=== PATIENT | female | born 1945 | race Caucasian/White ===

== ENCOUNTER 2016-08-20 07:01 | Day surgery (SDC) | payer OTHER, MEDICAID ==
[~2016-08-20] VITALS: Ht 160 cm; Wt 58.9 kg
[~2016-08-20 07:01] MED LIST: AMOX1TAB12 PO; AMOX1TAB64 PO; ASPI-621 PO; ASPI325T4 PO; ATOR10TA PO; CARV12.52 PO; CELE200C PO; CIPR500T87 PO; CYCL5TAB PO; DOCU-30 PO; ENOX60SY4 SQ; FERR325T20 PO; GABA-826 PO; GABA300C PO; GEMF600T PO; GEMF600T3 PO; GLYB5TAB3 PO; HYDR-3240 PO; HYDR-3307 PO; INDO25CA PO; LEVO150T5 PO; LEVO750T26 PO; LORA-445 PO; LORA0.5T PO; LOVA40TA2 PO; METF500T4 PO; METR500T PO; OMEP-110 PO; OXYC10TA32 PO; OXYC1TAB9 PO; PRAS10TA4 PO; PRED20TA PO; SITA100T PO; TRAM50TA2 PO; WARF5TAB PO; WARF7.5T PO; neurontin PO; synthroid PO
[2016-08-20 07:33] VITALS: BP 147/61
[2016-08-20] MEDS ORDERED: LACTATED RINGERS 1,000 ML IV SCH ×2 (07:35→09:23)
[2016-08-20] MEDS ORDERED: OXYB5TAB7 PO (07:56)
[2016-08-20] MEDS ORDERED: TRAM50TA2 PO (07:56)
[2016-08-20] MEDS ORDERED: PLEASE ENTER HEIGHT AND WEIGHT MC SCH (08:00)
[2016-08-20] MEDS ORDERED: BUPIVACAINE/PF 0.5% ONE (08:35)
[2016-08-20] MEDS ORDERED: LIDOCAINE-MPF 2% ,5ML ONE (08:35)
[2016-08-20] MEDS ORDERED: BUPIVACAINE/PF 0.5% INFIL ONE (08:45)
[2016-08-20] MEDS ORDERED: PROPOFOL 10 MG/ML, 20ML ONE (08:48)
[2016-08-20] MEDS ORDERED: CEFAZOLIN 1,000 MG ONE (08:48)
[2016-08-20] MEDS ORDERED: ONDANSETRON 2MG/ML, 2ML ONE (08:48)
[2016-08-20 09:09] LABS: PATH.CAST-FLAG NOT PRESENT; SPERM-FLAG NOT PRESENT; SRC-FLAG NOT PRESENT; XTAL-FLAG NOT PRESENT; YLC-FLAG NOT PRESENT
[2016-08-20] MEDS ORDERED: METOPROLOL 1 MG/ML, 5ML IV PRN (09:30)
[2016-08-20] MEDS ORDERED: ALBUTEROL SULFATE 2.5 MG/3 ML NPPB PRN (09:30)
[2016-08-20] MEDS ORDERED: OXYcodone 5 MG/5 ML ORAL.SOL UDC PO PRN (09:30)
[2016-08-20] MEDS ORDERED: hydrALAzine 20 MG/ML, 1ML IV PRN (09:30)
[2016-08-20] MEDS ORDERED: ONDANSETRON 2MG/ML, 2ML IVPush PRN (09:30)
[2016-08-20] MEDS ORDERED: ACETAMINOPHEN 325 MG TABLET PO PRN (09:30)
[2016-08-20] MEDS ORDERED: EPHEDRINE 50 MG/ML, 1ML IVPush PRN (09:30)
[2016-08-20] MEDS ORDERED: LABETALOL 5MG/ML, 20ML IV PRN (09:30)
[2016-08-20] MEDS ORDERED: FENTANYL PF 100 MCG/2ML IV PRN (09:30)
[2016-08-20] MEDS ORDERED: HYDROmorphone 1 MG/ML, 1ML IV PRN (09:30)
== END 2016-08-20 11:40 ==
LOC: OUT 07:01
PROVIDERS: ATTEND Orthopaedic Surgery
DX: G56.02 Carpal tunnel syndrome, left upper limb (principal); J45.909 Unspecified asthma, uncomplicated; E11.9 Type 2 diabetes mellitus without complications; E78.00 Pure hypercholesterolemia, unspecified; F17.200 Nicotine dependence, unspecified, uncomplicated; Z87.39 Personal history of other diseases of the musculoskeletal system and connective tissue; Z86.39 Personal history of other endocrine, nutritional and metabolic disease
CPT/HCPCS: 64721; 81001; 82962; 87077; 87086; 87186; 93005; J0690; J2405; J2704; J3490; J7120

== ENCOUNTER 2016-10-27 22:10 | Emergency (ER) | payer OTHER, MEDICAID ==
[~2016-10-27] VITALS: Ht 160 cm; Wt 57.3 kg
[~2016-10-27 22:10] MED LIST changes: +ASPI325T17 PO; -ASPI325T4 PO; +CARV12.543 PO; +DOCU-131 PO; -DOCU-30 PO; +FERR325T18 PO; -FERR325T20 PO; +NITR100C56 PO; +OXYB5TAB7 PO; -OXYC10TA32 PO; +OXYC10TA47 PO
[2016-10-27 23:28] LABS: HEMATOCRIT 42.2 % (34.6-47.8); HEMOGLOBIN 14.3 g/dL (11.7-16.4); WHITE BLOOD COUNT 6.3 x10^3/uL (3.4-10)
[2016-10-27] MEDS ORDERED: SODIUM CHLORIDE FLUSH 10ML SYR IVF ONE (23:30)
[2016-10-27] MEDS ORDERED: SODIUM CHLORIDE 0.9% 1,000ML IVBOLUS ONE (23:30)
[2016-10-27 23:38] LABS: ASPARTATE AMINO TRANSFERASE 10 U/L (15-37); BLOOD UREA NITROGEN 7 mg/dL (7-18)
[2016-10-27 23:48] LABS: IS PT STATUS REG ER OR PRE ER? YES
[2016-10-28 02:47] LABS: IS PT STATUS REG ER OR PRE ER? YES
[2016-10-28 03:02] VITALS: BP 166/70
== END 2016-10-28 03:18 | disposition home or self-care (01) ==
LOC: ED 23:59
DX: R53.83 Other fatigue (principal); R53.1 Weakness; R19.7 Diarrhea, unspecified; J44.9 Chronic obstructive pulmonary disease, unspecified; E11.9 Type 2 diabetes mellitus without complications; I11.9 Hypertensive heart disease without heart failure; I25.10 Atherosclerotic heart disease of native coronary artery without angina pectoris; I25.2 Old myocardial infarction; M19.90 Unspecified osteoarthritis, unspecified site
CPT/HCPCS: 36415; 80053; 81003; 83690; 84484; 85025; 93005; 96360; 99285; J7030

== ENCOUNTER 2017-01-18 05:15 | Day surgery (SDC) | payer OTHER, MEDICAID ==
[~2017-01-18] VITALS: Ht 160 cm; Wt 60.0 kg
[~2017-01-18 05:15] MED LIST changes: +ASPI-496 PO; +FERR324T8 PO; +GABA300C10 PO
[2017-01-18] MEDS ORDERED: LACTATED RINGERS 1,000 ML IV SCH (06:11)
[2017-01-18 06:13] VITALS: BP 141/71
[2017-01-18] MEDS ORDERED: BUPIVACAINE/PF 0.5% ONE ×2 (06:36→06:57)
[2017-01-18] MEDS ORDERED: EPINEPHRINE 1 MG/ML, 1ML ONE (06:36)
[2017-01-18] MEDS ORDERED: MIDAZOLAM 1 MG/ML, 2ML ONE ×2 (06:54→07:02)
[2017-01-18] MEDS ORDERED: FENTANYL PF 100 MCG/2ML ONE ×2 (06:54→07:02)
[2017-01-18] MEDS ORDERED: LIDOCAINE-MPF 2% ,5ML ONE (06:57)
[2017-01-18] MEDS ORDERED: ONDANSETRON 2MG/ML, 2ML IVPush PRN (07:00)
[2017-01-18] MEDS ORDERED: FENTANYL PF 100 MCG/2ML IV PRN (07:00)
[2017-01-18] MEDS ORDERED: OXYcodone 5 MG/5 ML ORAL.SOL UDC PO PRN (07:00)
[2017-01-18] MEDS ORDERED: HYDROmorphone 1 MG/ML, 1ML IV PRN (07:00)
[2017-01-18] MEDS ORDERED: PROPOFOL 10 MG/ML, 20ML ONE (07:02)
[2017-01-18] MEDS ORDERED: CEFAZOLIN 1,000 MG ONE (07:02)
[2017-01-18] MEDS ORDERED: BUPIVACAINE/PF 0.5% INFIL ONE (07:17)
== END 2017-01-18 10:25 ==
LOC: OUT 05:15
PROVIDERS: ATTEND Orthopaedic Surgery
DX: G56.01 Carpal tunnel syndrome, right upper limb (principal); I10 Essential (primary) hypertension; F17.210 Nicotine dependence, cigarettes, uncomplicated; Z87.39 Personal history of other diseases of the musculoskeletal system and connective tissue; Z98.890 Other specified postprocedural states
CPT/HCPCS: 64721; 82962; J0690; J2250; J2704; J3010; J3490; J7120; J0171

== ENCOUNTER 2017-01-22 11:58 | Emergency (ER) | payer OTHER, MEDICAID ==
[~2017-01-22] VITALS: Ht 160 cm; Wt 60.0 kg
[2017-01-22 12:01] VITALS: BP 187/76
== END 2017-01-22 13:52 | disposition home or self-care (01) ==
LOC: ED 12:49
DX: M96.89 Other intraoperative and postprocedural complications and disorders of the musculoskeletal system (principal)
CPT/HCPCS: 99281

== ENCOUNTER 2017-07-21 14:43 | Inpatient (IN) | payer OTHER, MEDICAID ==
[~2017-07-21] VITALS: Ht 160 cm; Wt 58.0 kg
[2017-07-21] MEDS ORDERED: ASPIRIN 81 MG TABLET CHEW PO ONE (15:30)
[2017-07-21] MEDS ORDERED: NITROGLYCERIN SINGLE TAB 0.4 MG SL PRN (15:30)
[2017-07-21] MEDS ORDERED: SODIUM CHLORIDE FLUSH 10ML SYR IVF ONE (15:30)
[2017-07-21 15:50] LABS: BASOPHILS # (AUTO) 0.05 x10^3/uL (0-0.1); BASOPHILS % (AUTO) 1 % (0-1); EOSINOPHILS # (AUTO) 0.25 x10^3/uL (0-0.4); EOSINOPHILS % (AUTO) 4 % (1-7); LYMPHOCYTES % (AUTO) 29 % (22-44); MD NO; MEAN CORPUSCULAR HEMOGLOBIN 31.7 pg (27.0-34.8); MEAN CORPUSCULAR HGB CONC 34.2 g/dL (32.4-35.8); MEAN CORPUSCULAR VOLUME 92.5 fL (80-100); MEAN PLATELET VOLUME 10.7 fL (7.4-10.4); MONOCYTES # (AUTO) 0.66 x10^3/uL (0.2-0.8); MONOCYTES % (AUTO) 9 % (2-9); NEUTROPHILS # (AUTO) 4.23 x10^3/uL (1.8-6.8); NEUTROPHILS % (AUTO) 58 % (42-75); PLATELET COUNT 116 x10^3/uL (130-400); RED BLOOD COUNT 5.11 x10^6/uL (3.82-5.3); RED CELL DISTRIBUTION WIDTH 14.3 % (9.6-15.2)
[2017-07-21] MEDS ORDERED: NITROGLYCERIN SINGLE TAB 0.4 MG SL ONE (15:50)
[2017-07-21] MEDS ORDERED: ASPIRIN 81 MG TABLET CHEW ONE (15:50)
[2017-07-21 15:54] LABS: INTERNATIONAL NORMALIZED RATIO 1.1 (0.93-1.1); PROTHROMBIN TIME 11.3 Seconds (9.6-11.5)
[2017-07-21 15:59] LABS: ALBUMIN 3.9 g/dL (3.4-5.0); ANION GAP 8 mmol/L (5-15); CALCIUM 8.9 mg/dL (8.5-10.1); CHLORIDE 109 mmol/L (98-107); CREATININE 0.93 mg/dL (0.55-1.02)
[2017-07-21 16:04] LABS: TROPONIN I 0.142 ng/mL (0.000-0.045)
[2017-07-21] MEDS ORDERED: SODIUM CHLORIDE FLUSH 10ML SYR IVF PRN (17:00)
[2017-07-21] MEDS ORDERED: HEPARIN 5,000 UNITS/ML, 1ML IV ONE (17:00)
[2017-07-21] MEDS ORDERED: HEPARIN 25,000 UNITS/500ML PMX 500 ML IV PRN (17:00)
[2017-07-21] MEDS ORDERED: HEPARIN 25,000 UNITS/500ML PMX 500 ML ONE (17:07)
[2017-07-21] MEDS ORDERED: HEPARIN 5,000 UNITS/ML, 1ML ONE (17:07)
[2017-07-21] MEDS ORDERED: NITROGLYCERIN 0.4 MG BOTTLE (25 TABS) SL PRN (17:30)
[2017-07-21] MEDS ORDERED: ONDANSETRON 2MG/ML, 2ML IVPush PRN (17:30)
[2017-07-21] MEDS ORDERED: LABETALOL 5MG/ML, 20ML IVPush PRN (17:30)
[2017-07-21] MEDS ORDERED: NITROGLYCERIN 0.4 MG/SPRAY SL PRN (17:30)
[2017-07-21] MEDS ORDERED: ACETAMINOPHEN 325 MG TABLET PO PRN (17:30)
[2017-07-21] MEDS ORDERED: hydrALAzine 20 MG/ML, 1ML IVPush PRN (17:30)
[2017-07-21] MEDS ORDERED: DOCUSATE 100 MG CAPSULE PO PRN (17:30)
[2017-07-21] MEDS ORDERED: HYDROcodone/APAP 10/325 MG TABLET PO PRN (17:30)
[2017-07-21] MEDS ORDERED: BISACODYL 10 MG SUPP PR PRN (17:30)
[2017-07-21 18:13] LABS: TROPONIN I 0.134 ng/mL (0.000-0.045)
[2017-07-21 18:51] LABS: HEMOGLOBIN A1C 6.3 % (4.2-6.3)
[2017-07-21 19:05] VITALS: BP 120/63
[2017-07-21] MEDS: OMEPRAZOLE 20 MG CAPSULE.DR PO SCH (22:11)
[2017-07-21] MEDS: metFORMIN 500 MG TABLET PO SCH (22:11)
[2017-07-21] MEDS: ASPIRIN 81 MG TABLET EC PO SCH (22:11)
[2017-07-21] MEDS: FERROUS GLUCONATE 324 MG TABLET PO SCH (22:11)
[2017-07-21] MEDS: LOVASTATIN 40 MG TABLET PO SCH (22:11)
[2017-07-21] MEDS: CARVEDILOL 12.5 MG TABLET PO SCH (22:12)
[2017-07-21] MEDS: GABAPENTIN 300 MG CAPSULE PO SCH (22:12)
[2017-07-21] MEDS: NICOTINE 14MG/24 HR PATCH.TD24 TD SCH (22:12)
[2017-07-21] MEDS: LORazepam 0.5MG TABLET PO SCH (22:15)
[2017-07-21 23:44] LABS: TROPONIN I 0.129 ng/mL (0.000-0.045)
[2017-07-22] MEDS: HEPARIN 5,000 UNITS/ML, 1ML IV PRN ×2 (00:09→07:29)
[2017-07-22 03:02] VITALS: BP 146/83
[2017-07-22 03:04] VITALS: BP 146/83
[2017-07-22] MEDS: LORazepam 0.5MG TABLET PO SCH ×4 (06:00→21:11)
[2017-07-22 06:28] LABS: MEAN CORPUSCULAR HEMOGLOBIN 31.2 pg (27.0-34.8); MEAN CORPUSCULAR HGB CONC 33.4 g/dL (32.4-35.8); MEAN CORPUSCULAR VOLUME 93.4 fL (80-100); RED BLOOD COUNT 4.53 x10^6/uL (3.82-5.3); RED CELL DISTRIBUTION WIDTH 14.1 % (9.6-15.2)
[2017-07-22 06:37] LABS: ANION GAP 7 mmol/L (5-15); CALCIUM 8.8 mg/dL (8.5-10.1); CHLORIDE 111 mmol/L (98-107); CREATININE 0.81 mg/dL (0.55-1.02)
[2017-07-22 06:46] LABS: BASOPHILS # (AUTO) 0.04 x10^3/uL (0-0.1); BASOPHILS % (AUTO) 1 % (0-1); EOSINOPHILS # (AUTO) 0.26 x10^3/uL (0-0.4); EOSINOPHILS % (AUTO) 5 % (1-7); LYMPHOCYTES % (AUTO) 28 % (22-44); MD SCAN; MEAN PLATELET VOLUME 10.2 fL (7.4-10.4); MONOCYTES # (AUTO) 0.45 x10^3/uL (0.2-0.8); MONOCYTES % (AUTO) 8 % (2-9); NEUTROPHILS # (AUTO) 3.12 x10^3/uL (1.8-6.8); NEUTROPHILS % (AUTO) 58 % (42-75); PLATELET COUNT 84 x10^3/uL (130-400)
[2017-07-22 06:48] LABS: CHOL/HDL RATIO 2.8; CHOLESTEROL, TOTAL 86 mg/dL (140-239); HDL CHOL % 36 % (28-40); HDL CHOLESTEROL (DIRECT) 31 mg/dL (40-60); LDL CHOLESTEROL,CALCULATED 30 mg/dL (54-169); THYROID STIMULATING HORMONE 0.474 mIU/L (0.358-3.740); TRIGLYCERIDES 126 mg/dL (50-200); VLDL CHOLESTEROL 25 mg/dL (0-25)
[2017-07-22 07:35] VITALS: BP 146/65
[2017-07-22] MEDS: OXYBUTYNIN CHLORIDE 5 MG TABLET PO SCH (08:20)
[2017-07-22] MEDS: FERROUS GLUCONATE 324 MG TABLET PO SCH ×2 (08:20→21:10)
[2017-07-22] MEDS: ASPIRIN 81 MG TABLET EC PO SCH ×2 (08:21→21:11)
[2017-07-22] MEDS: GABAPENTIN 300 MG CAPSULE PO SCH ×2 (08:21→21:10)
[2017-07-22] MEDS: CARVEDILOL 12.5 MG TABLET PO SCH ×2 (08:21→21:11)
[2017-07-22] MEDS: metFORMIN 500 MG TABLET PO SCH ×2 (08:22→21:11)
[2017-07-22] MEDS: LEVOTHYROXINE 150 MCG TABLET PO SCH (08:23)
[2017-07-22] MEDS: OMEPRAZOLE 20 MG CAPSULE.DR PO SCH ×2 (09:00→21:10)
[2017-07-22] MEDS ORDERED: VERAPAMIL 2.5 MG/ML, 2ML ONE (12:56)
[2017-07-22] MEDS ORDERED: TICAGRELOR 90 MG TABLET ONE (12:56)
[2017-07-22] MEDS ORDERED: FENTANYL PF 100 MCG/2ML ONE (12:56)
[2017-07-22] MEDS ORDERED: MIDAZOLAM 1 MG/ML, 5ML ONE (12:56)
[2017-07-22] MEDS ORDERED: HEPARIN 1,000 UNITS/ML, 10ML ONE (12:57)
[2017-07-22] MEDS ORDERED: BIVALIRUDIN 250 MG ONE (12:57)
[2017-07-22] MEDS ORDERED: CLOPIDOGREL 300 MG TABLET ONE (14:20)
[2017-07-22] MEDS ORDERED: BIVALIRUDIN 250 MG in DEXTROSE 5% 50 ML IV SCH (14:20)
[2017-07-22 14:45] VITALS: BP 131/64
[2017-07-22] MEDS: NICOTINE 14MG/24 HR PATCH.TD24 TD SCH (18:33)
[2017-07-22 20:15] VITALS: BP 131/67
[2017-07-22] MEDS: LOVASTATIN 40 MG TABLET PO SCH (21:10)
[2017-07-23 00:16] VITALS: BP 132/73
[2017-07-23 05:10] LABS: ALBUMIN 3.2 g/dL (3.4-5.0); ANION GAP 7 mmol/L (5-15); CHLORIDE 106 mmol/L (98-107); CREATININE 0.64 mg/dL (0.55-1.02)
[2017-07-23] MEDS: LORazepam 0.5MG TABLET PO SCH ×3 (06:13→17:42)
[2017-07-23 07:35] VITALS: BP 123/77
[2017-07-23] MEDS ORDERED: CLOPIDOGREL 75 MG TABLET PO SCH (09:00)
[2017-07-23] MEDS: CARVEDILOL 12.5 MG TABLET PO SCH (10:26)
[2017-07-23] MEDS: OMEPRAZOLE 20 MG CAPSULE.DR PO SCH (10:26)
[2017-07-23] MEDS: OXYBUTYNIN CHLORIDE 5 MG TABLET PO SCH (10:26)
[2017-07-23] MEDS: FERROUS GLUCONATE 324 MG TABLET PO SCH (10:27)
[2017-07-23] MEDS: metFORMIN 500 MG TABLET PO SCH ×2 (10:27→17:40)
[2017-07-23] MEDS: ASPIRIN 81 MG TABLET EC PO SCH (10:27)
[2017-07-23] MEDS: GABAPENTIN 300 MG CAPSULE PO SCH (10:27)
[2017-07-23] MEDS: LEVOTHYROXINE 150 MCG TABLET PO SCH (10:28)
[2017-07-23] MEDS ORDERED: POTASSIUM CHLORIDE 20 MEQ TAB.ER.PRT PO ONE (11:00)
[2017-07-23 13:17] VITALS: BP 127/67
[2017-07-23] MEDS: NICOTINE 14MG/24 HR PATCH.TD24 TD SCH (14:09)
[2017-07-23] MEDS ORDERED: CLOP75TA52 PO (17:38)
== END 2017-07-23 18:45 | disposition home health service (06) | DRG 247 ==
LOC: ED 16:30 → EDIP 16:49 → 5SO 18:53
PROVIDERS: ADMIT Internal Medicine; ATTEND Internal Medicine
PROC: 027034Z Dilation of Coronary Artery, One Artery with Drug-eluting Intraluminal Device, Percutaneous Approach (ICD-10-PCS; principal; 2017-07-22)
PROC: 4A023N7 Measurement of Cardiac Sampling and Pressure, Left Heart, Percutaneous Approach (ICD-10-PCS; 2017-07-22)
PROC: B2111ZZ Fluoroscopy of Multiple Coronary Arteries using Low Osmolar Contrast (ICD-10-PCS; 2017-07-22)
PROC: B2151ZZ Fluoroscopy of Left Heart using Low Osmolar Contrast (ICD-10-PCS; 2017-07-22)
DX: I25.110 Atherosclerotic heart disease of native coronary artery with unstable angina pectoris (principal); E44.0 Moderate protein-calorie malnutrition; I35.0 Nonrheumatic aortic (valve) stenosis; E87.6 Hypokalemia; F17.210 Nicotine dependence, cigarettes, uncomplicated; D50.9 Iron deficiency anemia, unspecified; D69.6 Thrombocytopenia, unspecified; E03.9 Hypothyroidism, unspecified; E78.5 Hyperlipidemia, unspecified; F12.90 Cannabis use, unspecified, uncomplicated; G89.29 Other chronic pain; I11.9 Hypertensive heart disease without heart failure; E11.51 Type 2 diabetes mellitus with diabetic peripheral angiopathy without gangrene; M54.9 Dorsalgia, unspecified; F41.9 Anxiety disorder, unspecified; M10.9 Gout, unspecified; M19.90 Unspecified osteoarthritis, unspecified site; I45.10 Unspecified right bundle-branch block; J44.9 Chronic obstructive pulmonary disease, unspecified; Z79.82 Long term (current) use of aspirin; Z82.49 Family history of ischemic heart disease and other diseases of the circulatory system; Z83.3 Family history of diabetes mellitus; Z68.22 Body mass index [BMI] 22.0-22.9, adult; Z80.9 Family history of malignant neoplasm, unspecified; Z86.19 Personal history of other infectious and parasitic diseases; I25.2 Old myocardial infarction; Z87.440 Personal history of urinary (tract) infections
CPT/HCPCS: 36415; 71045; 80048; 80061; 82040; 83036; 83735; 83880; 84100; 84443; 84484; 85014; 85018; 85025; 85520; 85610; 85730; 93005; 93306; 93458; 99156; 99157; C1769; C1894; C9600; J0583; J1644; J2250; J3010; C1725; C1874; C1887; Q9967

== ENCOUNTER 2018-01-25 10:43 | Inpatient (IN) | payer OTHER, MEDICAID ==
[~2018-01-25] VITALS: Ht 160 cm; Wt 59.8 kg
[~2018-01-25 10:43] MED LIST changes: -ASPI-621 PO; +ASPI81TA45 PO; +CLOP75TA52 PO; -GEMF600T3 PO; +GEMF600T4 PO; -INDO25CA PO; +INDO25CA5 PO; +METF500T17 PO; -METF500T4 PO; +OXYC-432 PO; -OXYC1TAB9 PO
[2018-01-25 11:40] LABS: BASOPHILS # (AUTO) 0.06 x10^3/uL (0-0.1); BASOPHILS % (AUTO) 1 % (0-1); EOSINOPHILS # (AUTO) 0.27 x10^3/uL (0-0.4); EOSINOPHILS % (AUTO) 4 % (1-7); LYMPHOCYTES # (AUTO) 1.24 x10^3/uL (1-3.4); LYMPHOCYTES % (AUTO) 17 % (22-44); MD NO; MEAN CORPUSCULAR HEMOGLOBIN 27.6 pg (27.0-34.8); MEAN CORPUSCULAR HGB CONC 33.2 g/dL (32.4-35.8); MEAN CORPUSCULAR VOLUME 83.1 fL (80-100); MEAN PLATELET VOLUME 11.4 fL (7.4-10.4); MONOCYTES # (AUTO) 0.57 x10^3/uL (0.2-0.8); MONOCYTES % (AUTO) 8 % (2-9); NEUTROPHILS # (AUTO) 5.25 x10^3/uL (1.8-6.8); NEUTROPHILS % (AUTO) 71 % (42-75); PLATELET COUNT 133 x10^3/uL (130-400); RED BLOOD COUNT 4.47 x10^6/uL (3.82-5.3); RED CELL DISTRIBUTION WIDTH 14.9 % (9.6-15.2)
[2018-01-25 11:45] LABS: INTERNATIONAL NORMALIZED RATIO 1.1 (0.93-1.1); PROTHROMBIN TIME 11.6 Seconds (9.6-11.5)
[2018-01-25 11:48] LABS: ALANINE AMINOTRANSFERASE 20 U/L (12-78); ALBUMIN 3.8 g/dL (3.4-5.0); ANION GAP 8 mmol/L (5-15); CALCIUM 8.5 mg/dL (8.5-10.1); CHLORIDE 105 mmol/L (98-107); CREATININE 0.79 mg/dL (0.55-1.02)
[2018-01-25 11:52] LABS: ALKALINE PHOSPHATASE 91 U/L (45-117); BILIRUBIN,TOTAL 0.4 mg/dL (0.2-1.0); TOTAL PROTEIN 7.4 g/dL (6.4-8.2); TROPONIN I 0.116 ng/mL (0.000-0.045)
[2018-01-25] MEDS ORDERED: NITROGLYCERIN OINT 2%, 1GM TP ONE ×2 (12:30→12:33)
[2018-01-25 14:58] VITALS: BP 135/55
[2018-01-25] MEDS ORDERED: NITROGLYCERIN 0.4 MG BOTTLE (25 TABS) SL PRN ×2 (17:30)
[2018-01-25] MEDS ORDERED: BISACODYL 10 MG SUPP PR PRN (17:30)
[2018-01-25] MEDS ORDERED: ONDANSETRON 2MG/ML, 2ML IVPush PRN (17:30)
[2018-01-25] MEDS ORDERED: DOCUSATE 100 MG CAPSULE PO PRN (17:30)
[2018-01-25] MEDS ORDERED: NITROGLYCERIN 0.4 MG/SPRAY SL PRN (17:30)
[2018-01-25] MEDS ORDERED: ENALAPRILAT 1.25 MG/ML, 2ML IVPush PRN (17:30)
[2018-01-25] MEDS ORDERED: ACETAMINOPHEN 325 MG TABLET PO PRN (17:30)
[2018-01-25] MEDS ORDERED: LABETALOL 5MG/ML, 20ML IVPush PRN (17:30)
[2018-01-25] MEDS ORDERED: ZOLPIDEM 5MG TABLET PO PRN (17:30)
[2018-01-25] MEDS ORDERED: HEPARIN 5,000 UNITS/ML, 1ML IV ONE (18:00)
[2018-01-25] MEDS: HEPARIN 25,000 UNITS/500ML PMX 500 ML IV PRN (18:40)
[2018-01-25] MEDS: OMEPRAZOLE 20 MG CAPSULE.DR PO SCH (18:52)
[2018-01-25 18:57] LABS: TROPONIN I 0.108 ng/mL (0.000-0.045)
[2018-01-25 19:03] LABS: FREE T4 (FREE THYROXINE) 1.31 ng/dL (0.76-1.46); THYROID STIMULATING HORMONE 0.113 mIU/L (0.358-3.740)
[2018-01-25 19:21] LABS: HEMOGLOBIN A1C 5.8 % (4.2-6.3)
[2018-01-25 20:38] VITALS: BP 133/78
[2018-01-25] MEDS: LORazepam 0.5MG TABLET PO SCH (21:29)
[2018-01-25] MEDS: CARVEDILOL 12.5 MG TABLET PO SCH (21:30)
[2018-01-25] MEDS: OXYBUTYNIN CHLORIDE 5 MG TABLET PO SCH (21:30)
[2018-01-25] MEDS: LOVASTATIN 40 MG TABLET PO SCH (21:30)
[2018-01-25] MEDS: GABAPENTIN 300 MG CAPSULE PO SCH (21:30)
[2018-01-25] MEDS: FERROUS GLUCONATE 324 MG TABLET PO SCH (21:31)
[2018-01-25] MEDS: ASPIRIN 81 MG TABLET EC PO SCH (21:31)
[2018-01-25] MEDS: INSULIN LISPRO 100 UNITS/ML, PEN SQ-INSULIN SCH (21:35)
[2018-01-26 01:36] LABS: BASOPHILS # (AUTO) 0.08 x10^3/uL (0-0.1); BASOPHILS % (AUTO) 1 % (0-1); EOSINOPHILS # (AUTO) 0.43 x10^3/uL (0-0.4); EOSINOPHILS % (AUTO) 5 % (1-7); LYMPHOCYTES # (AUTO) 1.68 x10^3/uL (1-3.4); LYMPHOCYTES % (AUTO) 19 % (22-44); MD NO; MEAN CORPUSCULAR HEMOGLOBIN 27.7 pg (27.0-34.8); MEAN CORPUSCULAR HGB CONC 32.7 g/dL (32.4-35.8); MEAN CORPUSCULAR VOLUME 84.5 fL (80-100); MEAN PLATELET VOLUME 11.9 fL (7.4-10.4); MONOCYTES # (AUTO) 0.72 x10^3/uL (0.2-0.8); MONOCYTES % (AUTO) 8 % (2-9); NEUTROPHILS # (AUTO) 5.78 x10^3/uL (1.8-6.8); NEUTROPHILS % (AUTO) 67 % (42-75); PLATELET COUNT 154 x10^3/uL (130-400); RED CELL DISTRIBUTION WIDTH 15.2 % (9.6-15.2)
[2018-01-26 01:44] LABS: ANION GAP 5 mmol/L (5-15); CALCIUM 9.2 mg/dL (8.5-10.1); CHLORIDE 105 mmol/L (98-107); CHOLESTEROL, TOTAL 148 mg/dL (140-239); CREATININE 0.83 mg/dL (0.55-1.02)
[2018-01-26 01:47] LABS: CHOL/HDL RATIO 3.6; HDL CHOL % 28 % (28-40); HDL CHOLESTEROL (DIRECT) 41 mg/dL (40-60); LDL CHOLESTEROL,CALCULATED 74 mg/dL (54-169); LDL/HDL RATIO 1.8 (0.5-3.0); TRIGLYCERIDES 166 mg/dL (50-200); VLDL CHOLESTEROL 33 mg/dL (0-25)
[2018-01-26] MEDS: HEPARIN 5,000 UNITS/ML, 1ML IV PRN ×4 (02:39→23:02)
[2018-01-26 03:27] VITALS: BP 120/66
[2018-01-26] MEDS: LIDODERM 5% PATCH TD PRN (05:10)
[2018-01-26] MEDS: LORazepam 0.5MG TABLET PO SCH ×4 (05:10→20:37)
[2018-01-26 06:46] VITALS: BP 122/65
[2018-01-26] MEDS: INSULIN LISPRO 100 UNITS/ML, PEN SQ-INSULIN SCH ×4 (07:00→20:32)
[2018-01-26] MEDS: OXYBUTYNIN CHLORIDE 5 MG TABLET PO SCH ×2 (09:00→20:34)
[2018-01-26] MEDS: GABAPENTIN 300 MG CAPSULE PO SCH ×2 (09:07→20:33)
[2018-01-26] MEDS: ASPIRIN 81 MG TABLET EC PO SCH ×2 (09:07→20:36)
[2018-01-26] MEDS: OMEPRAZOLE 20 MG CAPSULE.DR PO SCH ×2 (09:07→16:19)
[2018-01-26] MEDS: FERROUS GLUCONATE 324 MG TABLET PO SCH ×2 (09:07→20:36)
[2018-01-26] MEDS: CARVEDILOL 12.5 MG TABLET PO SCH ×2 (09:08→20:34)
[2018-01-26] MEDS: LEVOTHYROXINE 150 MCG TABLET PO SCH (09:08)
[2018-01-26 12:26] VITALS: BP 92/58
[2018-01-26] MEDS: CLOPIDOGREL 75 MG TABLET PO SCH (12:30)
[2018-01-26 20:17] VITALS: BP 118/55
[2018-01-26] MEDS: LOVASTATIN 40 MG TABLET PO SCH (20:35)
[2018-01-26] MEDS: HEPARIN 25,000 UNITS/500ML PMX 500 ML IV PRN (23:08)
[2018-01-27 03:23] VITALS: BP 105/58
[2018-01-27] MEDS: LORazepam 0.5MG TABLET PO SCH ×4 (05:32→20:18)
[2018-01-27 05:43] LABS: BASOPHILS # (AUTO) 0.04 x10^3/uL (0-0.1); BASOPHILS % (AUTO) 1 % (0-1); EOSINOPHILS # (AUTO) 0.23 x10^3/uL (0-0.4); EOSINOPHILS % (AUTO) 5 % (1-7); LYMPHOCYTES # (AUTO) 0.47 x10^3/uL (1-3.4); LYMPHOCYTES % (AUTO) 9 % (22-44); MD NO; MEAN CORPUSCULAR HEMOGLOBIN 27.5 pg (27.0-34.8); MEAN CORPUSCULAR HGB CONC 33.2 g/dL (32.4-35.8); MEAN CORPUSCULAR VOLUME 82.7 fL (80-100); MEAN PLATELET VOLUME 11.5 fL (7.4-10.4); MONOCYTES # (AUTO) 0.49 x10^3/uL (0.2-0.8); MONOCYTES % (AUTO) 10 % (2-9); NEUTROPHILS # (AUTO) 3.87 x10^3/uL (1.8-6.8); NEUTROPHILS % (AUTO) 76 % (42-75); PLATELET COUNT 106 x10^3/uL (130-400); RED BLOOD COUNT 4.39 x10^6/uL (3.82-5.3); RED CELL DISTRIBUTION WIDTH 15.2 % (9.6-15.2)
[2018-01-27 05:46] LABS: CHLORIDE 107 mmol/L (98-107)
[2018-01-27 05:57] LABS: ANION GAP 7 mmol/L (5-15); CALCIUM 8.7 mg/dL (8.5-10.1); CREATININE 0.74 mg/dL (0.55-1.02)
[2018-01-27 06:37] VITALS: BP 111/63
[2018-01-27] MEDS: INSULIN LISPRO 100 UNITS/ML, PEN SQ-INSULIN SCH ×4 (07:00→20:18)
[2018-01-27] MEDS: OXYBUTYNIN CHLORIDE 5 MG TABLET PO SCH ×2 (08:33→20:16)
[2018-01-27] MEDS: OMEPRAZOLE 20 MG CAPSULE.DR PO SCH ×2 (08:33→17:00)
[2018-01-27] MEDS: FERROUS GLUCONATE 324 MG TABLET PO SCH ×2 (08:33→20:17)
[2018-01-27] MEDS: GABAPENTIN 300 MG CAPSULE PO SCH ×2 (08:33→20:16)
[2018-01-27] MEDS: CLOPIDOGREL 75 MG TABLET PO SCH (08:33)
[2018-01-27] MEDS: ASPIRIN 81 MG TABLET EC PO SCH ×2 (08:33→20:16)
[2018-01-27] MEDS: LEVOTHYROXINE 150 MCG TABLET PO SCH (08:34)
[2018-01-27] MEDS: CARVEDILOL 12.5 MG TABLET PO SCH ×2 (08:34→20:17)
[2018-01-27] MEDS: HEPARIN 5,000 UNITS/ML, 1ML IV PRN (12:32)
[2018-01-27 12:49] VITALS: BP 121/67
[2018-01-27] MEDS ORDERED: FENTANYL PF 100 MCG/2ML ONE (14:31)
[2018-01-27] MEDS ORDERED: MIDAZOLAM 1 MG/ML, 5ML ONE (14:31)
[2018-01-27] MEDS ORDERED: TICAGRELOR 90 MG TABLET ONE (14:31)
[2018-01-27] MEDS ORDERED: VERAPAMIL 2.5 MG/ML, 2ML ONE (14:31)
[2018-01-27] MEDS ORDERED: BIVALIRUDIN 250 MG ONE (14:32)
[2018-01-27] MEDS ORDERED: LIDOCAINE 2%, 20ML ONE (14:32)
[2018-01-27] MEDS ORDERED: BIVALIRUDIN 250 MG in DEXTROSE 5% 100 ML IV SCH (15:24)
[2018-01-27] MEDS: SODIUM CHLORIDE 0.9% 1,000 ML IV SCH ×2 (16:19→23:24)
[2018-01-27 19:11] VITALS: BP 130/80
[2018-01-27] MEDS: TICAGRELOR 90 MG TABLET PO SCH (20:16)
[2018-01-27] MEDS: LIDODERM 5% PATCH TD PRN (20:16)
[2018-01-27] MEDS: LOVASTATIN 40 MG TABLET PO SCH (20:17)
[2018-01-28 01:01] VITALS: BP 124/75
[2018-01-28] MEDS: LORazepam 0.5MG TABLET PO SCH ×2 (06:00→11:00)
[2018-01-28 06:13] LABS: ANION GAP 8 mmol/L (5-15); CALCIUM 8.7 mg/dL (8.5-10.1); CHLORIDE 108 mmol/L (98-107)
[2018-01-28 06:14] LABS: CREATININE 0.63 mg/dL (0.55-1.02)
[2018-01-28 06:20] LABS: BASOPHILS # (AUTO) 0.03 x10^3/uL (0-0.1); BASOPHILS % (AUTO) 0 % (0-1); EOSINOPHILS # (AUTO) 0.19 x10^3/uL (0-0.4); EOSINOPHILS % (AUTO) 3 % (1-7); LYMPHOCYTES # (AUTO) 0.32 x10^3/uL (1-3.4); LYMPHOCYTES % (AUTO) 5 % (22-44); MD NO; MEAN CORPUSCULAR HEMOGLOBIN 27.2 pg (27.0-34.8); MEAN CORPUSCULAR HGB CONC 32.8 g/dL (32.4-35.8); MEAN CORPUSCULAR VOLUME 82.9 fL (80-100); MONOCYTES # (AUTO) 0.52 x10^3/uL (0.2-0.8); MONOCYTES % (AUTO) 8 % (2-9); NEUTROPHILS # (AUTO) 5.97 x10^3/uL (1.8-6.8); NEUTROPHILS % (AUTO) 85 % (42-75); PLATELET COUNT 103 x10^3/uL (130-400); RED BLOOD COUNT 4.34 x10^6/uL (3.82-5.3); RED CELL DISTRIBUTION WIDTH 15.7 % (9.6-15.2)
[2018-01-28] MEDS: INSULIN LISPRO 100 UNITS/ML, PEN SQ-INSULIN SCH ×2 (07:00→11:00)
[2018-01-28 07:06] VITALS: BP 121/67
[2018-01-28] MEDS: CARVEDILOL 12.5 MG TABLET PO SCH (08:34)
[2018-01-28] MEDS: OMEPRAZOLE 20 MG CAPSULE.DR PO SCH (08:34)
[2018-01-28] MEDS: GABAPENTIN 300 MG CAPSULE PO SCH (08:34)
[2018-01-28] MEDS: ASPIRIN 81 MG TABLET EC PO SCH (08:34)
[2018-01-28] MEDS: OXYBUTYNIN CHLORIDE 5 MG TABLET PO SCH (08:35)
[2018-01-28] MEDS: LEVOTHYROXINE 150 MCG TABLET PO SCH (08:35)
[2018-01-28] MEDS: TICAGRELOR 90 MG TABLET PO SCH (08:35)
[2018-01-28] MEDS: FERROUS GLUCONATE 324 MG TABLET PO SCH (08:35)
[2018-01-28] MEDS ORDERED: ASPIRIN 81 MG TABLET EC PO SCH (09:00)
[2018-01-28] MEDS ORDERED: LISI5TAB7 PO (11:21)
[2018-01-28] MEDS ORDERED: TICA90TA PO (11:21)
== END 2018-01-28 13:48 | disposition home or self-care (01) | DRG 246 ==
LOC: ED 11:44 → EDIP 12:19 → 5SO 14:35 → DCLOUNGE 01-28 13:17
PROVIDERS: ADMIT Internal Medicine; ATTEND Internal Medicine
PROC: B2110ZZ Fluoroscopy of Multiple Coronary Arteries using High Osmolar Contrast (ICD-10-PCS; principal; 2018-01-27)
PROC: 027034Z Dilation of Coronary Artery, One Artery with Drug-eluting Intraluminal Device, Percutaneous Approach (ICD-10-PCS; 2018-01-27)
PROC: 4A023N7 Measurement of Cardiac Sampling and Pressure, Left Heart, Percutaneous Approach (ICD-10-PCS; 2018-01-27)
DX: T82.855A Stenosis of coronary artery stent, initial encounter (principal); I50.33 Acute on chronic diastolic (congestive) heart failure; E11.52 Type 2 diabetes mellitus with diabetic peripheral angiopathy with gangrene; I24.9 Acute ischemic heart disease, unspecified; D68.9 Coagulation defect, unspecified; I35.0 Nonrheumatic aortic (valve) stenosis; E03.9 Hypothyroidism, unspecified; E11.40 Type 2 diabetes mellitus with diabetic neuropathy, unspecified; E78.5 Hyperlipidemia, unspecified; F17.200 Nicotine dependence, unspecified, uncomplicated; I11.9 Hypertensive heart disease without heart failure; I25.2 Old myocardial infarction; I45.10 Unspecified right bundle-branch block; J44.9 Chronic obstructive pulmonary disease, unspecified; M10.9 Gout, unspecified; G89.29 Other chronic pain; F17.210 Nicotine dependence, cigarettes, uncomplicated; D50.9 Iron deficiency anemia, unspecified; I71.2 Thoracic aortic aneurysm, without rupture; I25.111 Atherosclerotic heart disease of native coronary artery with angina pectoris with documented spasm; Y83.1 Surgical operation with implant of artificial internal device as the cause of abnormal reaction of the patient, or of later complication, without mention of misadventure at the time of the procedure; M19.90 Unspecified osteoarthritis, unspecified site; Z82.49 Family history of ischemic heart disease and other diseases of the circulatory system; Z79.82 Long term (current) use of aspirin; Z83.3 Family history of diabetes mellitus; Z87.440 Personal history of urinary (tract) infections; Y92.89 Other specified places as the place of occurrence of the external cause; Z79.4 Long term (current) use of insulin; Z98.51 Tubal ligation status; Z90.49 Acquired absence of other specified parts of digestive tract; Z89.432 Acquired absence of left foot; Z89.431 Acquired absence of right foot
CPT/HCPCS: 36415; 71045; 80048; 80053; 80061; 82962; 83036; 83690; 84439; 84443; 84484; 85025; 85520; 85610; 85730; 93005; 93306; 93454; 99156; 99157; 99285; C1760; C1769; C1894; C9600; G0378; J0583; J1644; J2250; J3010; J3490; C1725; C1874; C1887; J7030; Q9967

== ENCOUNTER 2018-08-27 01:33 | Emergency (ER) | payer MEDICARE, MEDICAID ==
[~2018-08-27] VITALS: Ht 160 cm; Wt 58.0 kg
[~2018-08-27 01:33] MED LIST changes: -GEMF600T4 PO; +GEMF600T8 PO; -HYDR-3307 PO; +HYDR-36 PO; +INDO25CA22 PO; -INDO25CA5 PO; +LISI5TAB7 PO; +TICA90TA PO
[2018-08-27] MEDS ORDERED: ONDANSETRON 2MG/ML, 2ML ONE (02:44)
[2018-08-27] MEDS ORDERED: MORPHINE SULFATE 4 MG/ML, 1ML ONE (02:44)
[2018-08-27 02:52] LABS: ALBUMIN 3.8 g/dL (3.4-5.0); ANION GAP 7 mmol/L (5-15); CALCIUM 9.6 mg/dL (8.5-10.1); CHLORIDE 106 mmol/L (98-107); CREATININE 0.79 mg/dL (0.55-1.02)
[2018-08-27 02:56] LABS: TROPONIN I 0.118 ng/mL (0.000-0.045)
[2018-08-27] MEDS ORDERED: MORPHINE SULFATE 4 MG/ML, 1ML IVPush PRN (03:00)
[2018-08-27] MEDS ORDERED: ONDANSETRON 2MG/ML, 2ML IVPush ONE (03:00)
[2018-08-27 03:10] LABS: MD YES; MEAN CORPUSCULAR HEMOGLOBIN 22.7 pg (27.0-34.8); MEAN CORPUSCULAR HGB CONC 30.9 g/dL (32.4-35.8); MEAN CORPUSCULAR VOLUME 73.7 fL (80-100); MEAN PLATELET VOLUME 10.8 fL (7.4-10.4); PLATELET COUNT 157 x10^3/uL (130-400); RED BLOOD COUNT 4.72 x10^6/uL (3.82-5.3); RED CELL DISTRIBUTION WIDTH 19.7 % (9.6-15.2)
[2018-08-27 03:13] LABS: ANISOCYTOSIS 1+; BAND#(MANUAL) 0.15 x10^3/uL; BANDS%(MANUAL) 2 % (0-7); BASOS#(MANUAL) 0.07 x10^3/uL (0-0.1); BASOS% (MANUAL) 1 % (0-1); EOS#(MANUAL) 0.22 x10^3/uL (0.0-0.4); EOS% (MANUAL) 3 % (1-7); LYMPH#(MANUAL) 1.75 x10^3/uL (1-3.4); LYMPHS% (MANUAL) 24 % (22-44); MONOS#(MANUAL) 0.29 x10^3/uL (0.3-2.7); MONOS% (MANUAL) 4 % (2-9); SEG#(MANUAL) 4.82 x10^3/uL (1.8-6.8); SEGS% (MANUAL) 66 % (42-75)
[2018-08-27 03:14] LABS: POLYCHROMASIA 1+
[2018-08-27 03:15] LABS: <PLATELET ESTIMATE> ADEQUATE; LARGE PLATELETS 1+
[2018-08-27] MEDS ORDERED: OMNIPAQUE 350 MG/ML, 100ML BOTTLE ONE (03:18)
--- NOTE | 2018-08-27 03:29 | NUR ---
PT RESTING IN ROOM. VS STABLE. ELASTIC TAPE INSERTER ON. NSR NOTED. CALL LIGHT IN PLACE. WILL CONTINUE TO MONITOR.
--- NOTE | 2018-08-27 04:15 | NUR ---
PT RESTING IN ROOM. REGULAR RESP. NO ACUTE DISTRESS NOTED. CALL LIGHT IN PLACE. WILL CONTINUE TO MONITOR.
--- NOTE | 2018-08-27 04:44 | NUR ---
DR POLLACK HAS UPDATED PATIENT. HEPARIN HELD UNTIL LABS DRAWN PER DR POLLACK.
[2018-08-27] MEDS ORDERED: HEPARIN 5,000 UNITS/ML, 1ML ONE (04:50)
[2018-08-27] MEDS ORDERED: HEPARIN 25,000 UNITS/500ML PMX 500 ML ONE (04:50)
[2018-08-27 04:55] LABS: INTERNATIONAL NORMALIZED RATIO 1.05 (0.93-1.1)
[2018-08-27] MEDS ORDERED: HEPARIN 25,000 UNITS/500ML PMX 500 ML IV PRN (05:00)
[2018-08-27] MEDS ORDERED: hydrALAzine 20 MG/ML, 1ML IV ONE (05:00)
[2018-08-27] MEDS ORDERED: HEPARIN 5,000 UNITS/ML, 1ML IV PRN (05:00)
[2018-08-27] MEDS ORDERED: HEPARIN 5,000 UNITS/ML, 1ML IV ONE (05:00)
--- NOTE | 2018-08-27 05:03 | NUR ---
PT USED BATHROOM. AIR MATRESS PLACED ON PATIENT'S BED FOR COMFORT. PT RESTING IN ROOM. VS STABLE. PT REPORTS SHE HAS NO PAIN RIGHT NOW. GRIEVANCE COORDINATOR ON. NSR NOTED. WILL CONTINUE TO MONITOR.
--- NOTE | 2018-08-27 05:41 | NUR ---
PT RESTING IN ROOM. REGULAR RESP. VS STABLE. CODE NUMBER STAMPER ON. NSR NOTED. WILL CONTINUE TO MONITOR.
--- NOTE | 2018-08-27 06:11 | NUR ---
PT RESTING IN ROOM. OPAL MINER ON. NSR NOTED. CALL LIGHT IN PLACE. WILL CONTINUE TO MONITOR.
--- NOTE | 2018-08-27 07:00 | NUR ---
REPORT GIVEN TO MARLA ETIENNE
--- NOTE | 2018-08-27 07:20 | NUR ---
ASSUMED CARE. PT UOB WITHOUT ASSISTANCE TO BATHROOM WITH URINE SAMPLE OBTAINED. PT STATES ABDOMINAL PAIN IMPROVED BUT THAT IT IS "STILL THERE."
[2018-08-27 07:41] LABS: MICROSCOPIC AUTO
[2018-08-27 07:49] LABS: CULTURE INDICATED? YES
--- NOTE | 2018-08-27 09:30 | NUR ---
HOSPITALIST AT BEDSIDE. PT EATING FOOD PROVIDED BY VISITORS
[2018-08-27 09:42] VITALS: BP 149/87
[2018-08-27] MEDS ORDERED: CEFD300C37 PO ×2 (09:44)
[2018-08-27] MEDS ORDERED: OMEP-110 PO (09:44)
[2018-08-27] MEDS ORDERED: SUCR1ORA5 PO (09:44)
[2018-08-27] MEDS ORDERED: APIX5TAB PO ×2 (09:44)
--- NOTE | 2018-08-27 11:03 | NUR ---
PT GIVEN DISCHARGE INCLUDING MED CHANGES PER HOSPITALIST. ENCOURAGED TO DRINK PLENTY OF FLUID WITH MEDS AND FOOD AND TO TAKE SMALL BITES AND TO STAY AWAY FROM GREACY, SPICY FOOD AND COFFEE. TOLD PT TO RETURN TO ED FOR CP
[2018-10-05] MEDS ORDERED: POTA10TA5 PO (17:00)
[2018-10-05] MEDS ORDERED: FURO-93 PO (17:00)
[2018-10-05] MEDS ORDERED: ASPI81TA45 PO (17:00)
[2018-10-05] MEDS ORDERED: MAGN400T50 PO (17:00)
[2018-10-05] MEDS ORDERED: FERR-51 PO (17:00)
[2018-10-05] MEDS ORDERED: ATOR-2 PO (17:00)
[2018-10-05] MEDS ORDERED: CARV12.52 PO (17:00)
[2018-10-05] MEDS ORDERED: LISI5TAB7 PO (17:00)
== END 2018-08-27 11:08 | disposition home or self-care (01) ==
LOC: ED 04:42 → EDIP 04:45 → UNDOADMIN 04:45 → ED 11:08
DX: I71.4 Abdominal aortic aneurysm, without rupture (principal); R79.89 Other specified abnormal findings of blood chemistry; I11.0 Hypertensive heart disease with heart failure; E11.9 Type 2 diabetes mellitus without complications; E78.5 Hyperlipidemia, unspecified; I25.2 Old myocardial infarction; J44.9 Chronic obstructive pulmonary disease, unspecified; I25.10 Atherosclerotic heart disease of native coronary artery without angina pectoris; F17.200 Nicotine dependence, unspecified, uncomplicated; Z90.49 Acquired absence of other specified parts of digestive tract; Z95.5 Presence of coronary angioplasty implant and graft
CPT/HCPCS: 36415; 71045; 74177; 80048; 81001; 82040; 83605; 83880; 84484; 85025; 85520; 85610; 87077; 87086; 93005; 96365; 96366; 96375; 96376; 99284; J1644; J2270; J2405; Q9967

== ENCOUNTER 2019-02-13 19:28 | Inpatient (IN) | payer MEDICARE, MEDICAID ==
[~2019-02-13] VITALS: Ht 160 cm; Wt 60.9 kg
[~2019-02-13 19:28] MED LIST changes: +APIX5TAB PO; +ATOR-2 PO; +CEFD300C37 PO; +FERR-51 PO; +FURO-93 PO; +MAGN400T50 PO; +OXYB5TAB10 PO; -OXYB5TAB7 PO; +POTA10TA5 PO; +SUCR1ORA5 PO
--- NOTE | 2019-02-13 19:36 | NUR ---
BIB EMS FOR GLF, TRIPPED OVER DOG AT 5 PM, HIT HEAD ON CABINET, HORACIO LOC. CO RIGHT SIDE BODY PAIN, DIZZYNESS, AND SMITH.
[2019-02-13] MEDS ORDERED: NORT50CA52 PO (20:00)
[2019-02-13 20:03] LABS: BASOPHILS # (AUTO) 0.05 x10^3/uL (0-0.1); BASOPHILS % (AUTO) 0 % (0-1); EOSINOPHILS # (AUTO) 0.38 x10^3/uL (0-0.4); EOSINOPHILS % (AUTO) 3 % (1-7); LYMPHOCYTES # (AUTO) 1.65 x10^3/uL (1-3.4); LYMPHOCYTES % (AUTO) 12 % (22-44); MD NO; MEAN CORPUSCULAR HEMOGLOBIN 31.3 pg (27.0-34.8); MEAN CORPUSCULAR HGB CONC 32.7 g/dL (32.4-35.8); MEAN CORPUSCULAR VOLUME 95.8 fL (80-100); MEAN PLATELET VOLUME 9.8 fL (7.4-10.4); MONOCYTES # (AUTO) 0.66 x10^3/uL (0.2-0.8); MONOCYTES % (AUTO) 5 % (2-9); NEUTROPHILS # (AUTO) 11.27 x10^3/uL (1.8-6.8); NEUTROPHILS % (AUTO) 80 % (42-75); PLATELET COUNT 137 x10^3/uL (130-400); RED BLOOD COUNT 5.19 x10^6/uL (3.82-5.3)
[2019-02-13 20:13] LABS: ALBUMIN 4.1 g/dL (3.4-5.0); ANION GAP 8 mmol/L (5-15); CHLORIDE 100 mmol/L (98-107); CREATININE 1.67 mg/dL (0.55-1.02)
[2019-02-13 20:17] LABS: TROPONIN I 0.118 ng/mL (0.000-0.045)
--- NOTE | 2019-02-13 20:26 | NUR ---
CADIACY MONITOR APPLIED, WARM BLANKETS GIVEN. PT IN IMAGING
--- NOTE | 2019-02-13 20:38 | NUR ---
POC TO ADMIT, NO FURTHER NEEDS AT THIS TIME. VS STABLE.
--- NOTE | 2019-02-13 20:46 | NUR ---
REPORT TO NOLAN
--- NOTE | 2019-02-13 21:01 | NUR ---
SON WOULD LIKE PHONE NUMBER IN PATIENT RECORD FOR CONTACT IF NEEDED. PARESH ACHARYA [phone]
--- NOTE | 2019-02-13 21:10 | NUR ---
REPORT RECEIVED AND CARE ASSUMED. PT REQUESTING TO GO TO BR. PT IS VERY DROWSY. UNABLE TO KEEP EYES OPEN. DISCUSSED WITH PT THAT IS NOT SAFE TO WALK HER AT THIS TIME. AGREES TO BEDPAN. ASSISTED PT ON BEDPAN. NO URINE OUTPUT AT THIS TIME. PT REMAINS VERY DROWSY T/O RN ASSIST. PER PT, SON TOOK HER BELONGINGS WITH HIM--UNSURE WHAT BELONGINGS SHE HAD. PT IS NSR ON MONITOR. VSS. STATES "OW" WHEN TOUCHING PT BUT PT UNABLE TO PINPOINT PAIN. DENIES CP. CALL LIGHT IN REACH. PT TO BE ADMITTED TO FLOOR.
[2019-02-13 22:06] VITALS: BP 105/60
[2019-02-13] MEDS ORDERED: SODIUM CHLORIDE 0.9% 1,000 ML IV SCH (23:54)
[2019-02-14] MEDS ORDERED: ACETAMINOPHEN 325 MG TABLET PO PRN
[2019-02-14] MEDS ORDERED: LIDODERM 5% PATCH TD PRN
[2019-02-14] MEDS ORDERED: hydrALAzine 20 MG/ML, 1ML IVPush PRN
[2019-02-14] MEDS ORDERED: ONDANSETRON ODT 4 MG PO PRN
[2019-02-14] MEDS ORDERED: DOCUSATE 100 MG CAPSULE PO PRN
[2019-02-14] MEDS: HEPARIN 5,000 UNITS/ML, 1ML SQ SCH ×3 (00:22→16:00)
[2019-02-14 03:05] VITALS: BP 125/72
[2019-02-14 03:13] LABS: BASOPHILS # (AUTO) 0.36 x10^3/uL (0-0.1); BASOPHILS % (AUTO) 3 % (0-1); EOSINOPHILS # (AUTO) 0.11 x10^3/uL (0-0.4); EOSINOPHILS % (AUTO) 1 % (1-7); LYMPHOCYTES % (AUTO) 7 % (22-44); MD NO; MEAN CORPUSCULAR HEMOGLOBIN 30.6 pg (27.0-34.8); MEAN CORPUSCULAR HGB CONC 32.7 g/dL (32.4-35.8); MEAN CORPUSCULAR VOLUME 93.7 fL (80-100); MEAN PLATELET VOLUME 10.3 fL (7.4-10.4); MONOCYTES # (AUTO) 0.56 x10^3/uL (0.2-0.8); MONOCYTES % (AUTO) 4 % (2-9); NEUTROPHILS # (AUTO) 12.36 x10^3/uL (1.8-6.8); NEUTROPHILS % (AUTO) 86 % (42-75); PLATELET COUNT 114 x10^3/uL (130-400); RED BLOOD COUNT 5.04 x10^6/uL (3.82-5.3); RED CELL DISTRIBUTION WIDTH 19.8 % (9.6-15.2)
[2019-02-14 03:21] LABS: ANION GAP 8 mmol/L (5-15); CALCIUM 9.3 mg/dL (8.5-10.1); CHLORIDE 104 mmol/L (98-107); CREATININE 1.45 mg/dL (0.55-1.02)
[2019-02-14] MEDS: ASPIRIN 81 MG TABLET EC PO SCH (05:11)
[2019-02-14] MEDS: LORazepam 0.5MG TABLET PO SCH ×4 (05:11→20:09)
[2019-02-14] MEDS: INSULIN LISPRO 100 UNITS/ML, PEN SQ-INSULIN SCH ×4 (07:00→20:26)
[2019-02-14] MEDS ORDERED: FUROSEMIDE 20 MG TABLET PO SCH (09:00)
[2019-02-14] MEDS ORDERED: POTASSIUM CHLORIDE 10 MEQ TABLET.ER PO SCH (09:00)
[2019-02-14 09:20] VITALS: BP 135/77
[2019-02-14] MEDS: LISINOPRIL 5 MG TABLET PO SCH (10:21)
[2019-02-14] MEDS: OXYBUTYNIN CHLORIDE 5 MG TABLET PO SCH ×2 (10:21→20:25)
[2019-02-14] MEDS: GABAPENTIN 300 MG CAPSULE PO SCH ×2 (10:21→20:25)
[2019-02-14] MEDS: OMEPRAZOLE 20 MG CAPSULE.DR PO SCH ×2 (10:21→20:25)
[2019-02-14] MEDS: CARVEDILOL 12.5 MG TABLET PO SCH ×2 (10:22→20:25)
[2019-02-14] MEDS: LEVOTHYROXINE 150 MCG TABLET PO SCH (10:22)
[2019-02-14] MEDS ORDERED: HEPARIN 5,000 UNITS/ML, 1ML IV ONE (12:30)
[2019-02-14] MEDS ORDERED: HEPARIN 5,000 UNITS/ML, 1ML IV PRN (12:30)
[2019-02-14] MEDS: HEPARIN 25,000 UNITS/500ML PMX 500 ML IV PRN (13:09)
[2019-02-14 13:26] LABS: MICROSCOPIC AUTO
[2019-02-14 13:27] LABS: CULTURE INDICATED? YES
[2019-02-14] MEDS: CEFTRIAXONE PMX 1GM/50ML 50 ML IV SCH (14:37)
[2019-02-14 14:52] VITALS: BP 92/58
[2019-02-14 15:38] VITALS: BP 95/59
[2019-02-14] MEDS: FERROUS SULFATE 325 MG TABLET PO SCH (18:07)
[2019-02-14 20:04] VITALS: BP 108/60
[2019-02-14] MEDS: ATORVASTATIN 80 MG TABLET PO SCH (20:25)
[2019-02-14] MEDS: NORTRIPTYLINE 50 MG CAPSULE PO SCH (20:26)
[2019-02-15 01:36] VITALS: BP 105/58
[2019-02-15] MEDS: ASPIRIN 81 MG TABLET EC PO SCH (05:03)
[2019-02-15 06:04] LABS: ALBUMIN 3.3 g/dL (3.4-5.0); ANION GAP 6 mmol/L (5-15); CHLORIDE 103 mmol/L (98-107)
[2019-02-15 06:36] LABS: ALANINE AMINOTRANSFERASE 37 U/L (12-78); ALKALINE PHOSPHATASE 70 U/L (45-117); BILIRUBIN,TOTAL 0.6 mg/dL (0.2-1.0); CHOLESTEROL, TOTAL 109 mg/dL (140-239); CREATININE 1.15 mg/dL (0.55-1.02); HDL CHOLESTEROL (DIRECT) 43 mg/dL (40-60); TRIGLYCERIDES 119 mg/dL (50-200); VLDL CHOLESTEROL 24 mg/dL (0-25)
[2019-02-15 06:37] LABS: CHOL/HDL RATIO 2.5; HDL CHOL % 39 % (28-40); LDL CHOLESTEROL,CALCULATED 42 mg/dL (54-169)
[2019-02-15 06:50] LABS: FREE T4 (FREE THYROXINE) 0.37 ng/dL (0.76-1.46)
[2019-02-15 06:57] VITALS: BP 92/52
[2019-02-15 07:00] LABS: BASOPHILS # (AUTO) 0.06 x10^3/uL (0-0.1); BASOPHILS % (AUTO) 1 % (0-1); EOSINOPHILS # (AUTO) 0.29 x10^3/uL (0-0.4); EOSINOPHILS % (AUTO) 3 % (1-7); LYMPHOCYTES # (AUTO) 1.51 x10^3/uL (1-3.4); LYMPHOCYTES % (AUTO) 15 % (22-44); MD SCAN; MEAN CORPUSCULAR HEMOGLOBIN 30.7 pg (27.0-34.8); MEAN CORPUSCULAR HGB CONC 32.7 g/dL (32.4-35.8); MEAN CORPUSCULAR VOLUME 94.1 fL (80-100); MEAN PLATELET VOLUME 10.8 fL (7.4-10.4); MONOCYTES # (AUTO) 0.43 x10^3/uL (0.2-0.8); MONOCYTES % (AUTO) 4 % (2-9); NEUTROPHILS # (AUTO) 7.81 x10^3/uL (1.8-6.8); NEUTROPHILS % (AUTO) 77 % (42-75); PLATELET COUNT 96 x10^3/uL (130-400); RED BLOOD COUNT 4.54 x10^6/uL (3.82-5.3)
[2019-02-15] MEDS: INSULIN LISPRO 100 UNITS/ML, PEN SQ-INSULIN SCH ×4 (07:00→21:11)
[2019-02-15] MEDS ORDERED: LEVOTHYROXINE 100 MCG INJ IVPush ONE (07:30)
[2019-02-15] MEDS: LEVOTHYROXINE 150 MCG TABLET PO SCH (07:43)
[2019-02-15] MEDS: LORazepam 0.5MG TABLET PO SCH ×4 (08:00→20:46)
[2019-02-15 09:17] VITALS: BP 107/62
[2019-02-15] MEDS: CARVEDILOL 12.5 MG TABLET PO SCH ×2 (09:22→20:45)
[2019-02-15] MEDS: OMEPRAZOLE 20 MG CAPSULE.DR PO SCH ×2 (09:22→20:45)
[2019-02-15] MEDS: OXYBUTYNIN CHLORIDE 5 MG TABLET PO SCH ×2 (09:22→20:51)
[2019-02-15] MEDS: LISINOPRIL 5 MG TABLET PO SCH (09:23)
[2019-02-15] MEDS: GABAPENTIN 300 MG CAPSULE PO SCH ×2 (09:23→20:46)
[2019-02-15 13:44] VITALS: BP 106/65
[2019-02-15] MEDS: CEFTRIAXONE PMX 1GM/50ML 50 ML IV SCH (13:51)
[2019-02-15] MEDS: FERROUS SULFATE 325 MG TABLET PO SCH (17:51)
[2019-02-15] MEDS: HEPARIN 25,000 UNITS/500ML PMX 500 ML IV PRN (18:12)
[2019-02-15 19:56] VITALS: BP 100/61
[2019-02-15] MEDS: ATORVASTATIN 80 MG TABLET PO SCH (20:45)
[2019-02-15] MEDS: NORTRIPTYLINE 50 MG CAPSULE PO SCH (20:51)
[2019-02-16 03:09] VITALS: BP 96/51
[2019-02-16 05:44] LABS: MEAN CORPUSCULAR HEMOGLOBIN 30.7 pg (27.0-34.8); MEAN CORPUSCULAR HGB CONC 32.7 g/dL (32.4-35.8); MEAN CORPUSCULAR VOLUME 93.8 fL (80-100); RED BLOOD COUNT 4.27 x10^6/uL (3.82-5.3); RED CELL DISTRIBUTION WIDTH 19.7 % (9.6-15.2)
[2019-02-16] MEDS: ASPIRIN 81 MG TABLET EC PO SCH (05:45)
[2019-02-16] MEDS: LORazepam 0.5MG TABLET PO SCH ×4 (05:47→21:20)
[2019-02-16 05:53] LABS: ANION GAP 8 mmol/L (5-15); CALCIUM 8.6 mg/dL (8.5-10.1); CHLORIDE 103 mmol/L (98-107)
[2019-02-16 06:04] LABS: CREATININE 1.05 mg/dL (0.55-1.02)
[2019-02-16 06:28] LABS: BASOPHILS # (AUTO) 0.05 x10^3/uL (0-0.1); BASOPHILS % (AUTO) 1 % (0-1); EOSINOPHILS # (AUTO) 0.34 x10^3/uL (0-0.4); EOSINOPHILS % (AUTO) 4 % (1-7); LYMPHOCYTES # (AUTO) 1.02 x10^3/uL (1-3.4); LYMPHOCYTES % (AUTO) 13 % (22-44); MD MORPH REVIEW ONLY; MEAN PLATELET VOLUME 11.4 fL (7.4-10.4); MONOCYTES # (AUTO) 0.51 x10^3/uL (0.2-0.8); MONOCYTES % (AUTO) 6 % (2-9); NEUTROPHILS # (AUTO) 5.93 x10^3/uL (1.8-6.8); NEUTROPHILS % (AUTO) 76 % (42-75); PLATELET COUNT 100 x10^3/uL (130-400)
[2019-02-16 06:29] LABS: <PLATELET ESTIMATE> DECREASED; LARGE PLATELETS 1+
[2019-02-16 06:30] LABS: <RBC MORPHOLOGY> NORMAL
[2019-02-16 07:13] VITALS: BP 143/63
[2019-02-16] MEDS: INSULIN LISPRO 100 UNITS/ML, PEN SQ-INSULIN SCH ×4 (08:03→22:00)
[2019-02-16] MEDS: CARVEDILOL 12.5 MG TABLET PO SCH ×2 (08:56→21:19)
[2019-02-16] MEDS: OXYBUTYNIN CHLORIDE 5 MG TABLET PO SCH ×2 (08:56→21:20)
[2019-02-16] MEDS: OMEPRAZOLE 20 MG CAPSULE.DR PO SCH ×2 (08:56→21:15)
[2019-02-16] MEDS: LISINOPRIL 5 MG TABLET PO SCH (08:56)
[2019-02-16] MEDS: LEVOTHYROXINE 150 MCG TABLET PO SCH (08:56)
[2019-02-16] MEDS: GABAPENTIN 300 MG CAPSULE PO SCH ×2 (08:56→21:15)
[2019-02-16] MEDS ORDERED: SODIUM CHLORIDE 0.9% 1,000 ML IV SCH (11:00)
[2019-02-16 13:25] VITALS: BP 134/74
[2019-02-16] MEDS: CEFTRIAXONE PMX 1GM/50ML 50 ML IV SCH (14:32)
[2019-02-16] MEDS ORDERED: FENTANYL PF 100 MCG/2ML ONE (15:38)
[2019-02-16] MEDS ORDERED: MIDAZOLAM 1 MG/ML, 5ML ONE (15:38)
[2019-02-16] MEDS ORDERED: BIVALIRUDIN 250 MG ONE (15:39)
[2019-02-16] MEDS ORDERED: TICAGRELOR 90 MG TABLET ONE (15:39)
[2019-02-16] MEDS ORDERED: LIDOCAINE 2%, 20ML ONE (15:39)
[2019-02-16] MEDS: SODIUM CHLORIDE 0.9% 1,000 ML IV SCH (17:03)
[2019-02-16] MEDS: FERROUS SULFATE 325 MG TABLET PO SCH (17:05)
[2019-02-16] MEDS ORDERED: LEVOTHYROXINE 100 MCG INJ IVPush ONE (18:00)
[2019-02-16 20:26] VITALS: BP 129/70
[2019-02-16] MEDS: NORTRIPTYLINE 50 MG CAPSULE PO SCH (21:20)
[2019-02-16] MEDS: ATORVASTATIN 80 MG TABLET PO SCH (21:20)
[2019-02-17] MEDS: SODIUM CHLORIDE 0.9% 1,000 ML IV SCH ×3 (00:32→17:12)
[2019-02-17 03:49] VITALS: BP 100/57
[2019-02-17 04:47] LABS: ANION GAP 5 mmol/L (5-15); CALCIUM 9.2 mg/dL (8.5-10.1); CHLORIDE 104 mmol/L (98-107)
[2019-02-17 04:58] LABS: CREATININE 0.94 mg/dL (0.55-1.02)
[2019-02-17 05:14] LABS: FREE T4 (FREE THYROXINE) 0.72 ng/dL (0.76-1.46)
[2019-02-17] MEDS: LORazepam 0.5MG TABLET PO SCH ×5 (06:00→21:00)
[2019-02-17] MEDS: ASPIRIN 81 MG TABLET EC PO SCH (06:15)
[2019-02-17 06:50] VITALS: BP 113/64
[2019-02-17] MEDS: INSULIN LISPRO 100 UNITS/ML, PEN SQ-INSULIN SCH ×4 (07:42→21:00)
[2019-02-17] MEDS: CARVEDILOL 12.5 MG TABLET PO SCH ×2 (10:03→22:36)
[2019-02-17] MEDS: OMEPRAZOLE 20 MG CAPSULE.DR PO SCH ×2 (10:03→22:34)
[2019-02-17] MEDS: LISINOPRIL 5 MG TABLET PO SCH (10:04)
[2019-02-17] MEDS: OXYBUTYNIN CHLORIDE 5 MG TABLET PO SCH ×2 (10:04→22:36)
[2019-02-17] MEDS: LEVOTHYROXINE 150 MCG TABLET PO SCH (10:04)
[2019-02-17] MEDS: GABAPENTIN 300 MG CAPSULE PO SCH ×2 (10:05→22:36)
[2019-02-17] MEDS ORDERED: LEVOTHYROXINE 100 MCG INJ IVPush ONE (12:00)
[2019-02-17 13:13] VITALS: BP 154/85
[2019-02-17] MEDS: ERTAPENEM 1 GM in SODIUM CHLORIDE 0.9% 50 ML IV SCH (14:56)
[2019-02-17] MEDS: FERROUS SULFATE 325 MG TABLET PO SCH (17:47)
[2019-02-17 20:25] VITALS: BP 119/67
[2019-02-17] MEDS: ATORVASTATIN 80 MG TABLET PO SCH (22:36)
[2019-02-17] MEDS: NORTRIPTYLINE 50 MG CAPSULE PO SCH (22:43)
[2019-02-18] MEDS: SODIUM CHLORIDE 0.9% 1,000 ML IV SCH ×2 (00:32→08:32)
[2019-02-18 01:21] VITALS: BP 125/72
[2019-02-18] MEDS: LORazepam 0.5MG TABLET PO SCH ×4 (06:00→20:47)
[2019-02-18] MEDS: ASPIRIN 81 MG TABLET EC PO SCH (06:17)
[2019-02-18] MEDS: INSULIN LISPRO 100 UNITS/ML, PEN SQ-INSULIN SCH ×4 (07:00→20:47)
[2019-02-18 07:33] LABS: FREE T4 (FREE THYROXINE) 0.91 ng/dL (0.76-1.46)
[2019-02-18 07:46] VITALS: BP 105/66
[2019-02-18] MEDS ORDERED: LEVOTHYROXINE 100 MCG INJ IVPush ONE (08:30)
[2019-02-18] MEDS: CARVEDILOL 12.5 MG TABLET PO SCH ×3 (09:00→20:45)
[2019-02-18] MEDS: OXYBUTYNIN CHLORIDE 5 MG TABLET PO SCH ×2 (09:48→20:47)
[2019-02-18] MEDS: LEVOTHYROXINE 150 MCG TABLET PO SCH (09:48)
[2019-02-18] MEDS: LISINOPRIL 5 MG TABLET PO SCH (09:49)
[2019-02-18] MEDS: OMEPRAZOLE 20 MG CAPSULE.DR PO SCH ×2 (09:49→20:45)
[2019-02-18] MEDS: GABAPENTIN 300 MG CAPSULE PO SCH ×2 (09:49→20:44)
[2019-02-18 13:41] VITALS: BP 129/73
[2019-02-18] MEDS: ERTAPENEM 1 GM in SODIUM CHLORIDE 0.9% 50 ML IV SCH (14:33)
[2019-02-18] MEDS: FERROUS SULFATE 325 MG TABLET PO SCH (18:31)
[2019-02-18 20:18] VITALS: BP 125/67
[2019-02-18] MEDS: NORTRIPTYLINE 50 MG CAPSULE PO SCH (20:45)
[2019-02-18] MEDS: ATORVASTATIN 80 MG TABLET PO SCH (20:46)
[2019-02-19 01:11] VITALS: BP 133/71
[2019-02-19 05:35] LABS: ANION GAP 4 mmol/L (5-15); CALCIUM 8.9 mg/dL (8.5-10.1); CHLORIDE 103 mmol/L (98-107); CREATININE 0.94 mg/dL (0.55-1.02)
[2019-02-19 05:40] LABS: MEAN CORPUSCULAR HEMOGLOBIN 31.2 pg (27.0-34.8); MEAN CORPUSCULAR HGB CONC 33.1 g/dL (32.4-35.8); MEAN CORPUSCULAR VOLUME 94.3 fL (80-100); RED BLOOD COUNT 4.25 x10^6/uL (3.82-5.3)
[2019-02-19 05:45] LABS: FREE T4 (FREE THYROXINE) 1.13 ng/dL (0.76-1.46)
[2019-02-19] MEDS: LORazepam 0.5MG TABLET PO SCH ×2 (05:55→11:08)
[2019-02-19] MEDS: ASPIRIN 81 MG TABLET EC PO SCH (05:56)
[2019-02-19 06:02] LABS: MD YES; MEAN PLATELET VOLUME 10.7 fL (7.4-10.4); PLATELET COUNT 95 x10^3/uL (130-400)
[2019-02-19 06:07] LABS: EOS#(MANUAL) 0.54 x10^3/uL (0.0-0.4); EOS% (MANUAL) 8 % (1-7); LYMPH#(MANUAL) 1.02 x10^3/uL (1-3.4); LYMPHS% (MANUAL) 15 % (22-44); MONOS#(MANUAL) 0.41 x10^3/uL (0.3-2.7); MONOS% (MANUAL) 6 % (2-9); SEG#(MANUAL) 4.83 x10^3/uL (1.8-6.8); SEGS% (MANUAL) 71 % (42-75)
[2019-02-19 06:08] LABS: <PLATELET ESTIMATE> DECREASED; ANISOCYTOSIS 1+; LARGE PLATELETS 1+; MICROCYTOSIS 1+
[2019-02-19 06:38] VITALS: BP 155/83
[2019-02-19] MEDS: INSULIN LISPRO 100 UNITS/ML, PEN SQ-INSULIN SCH ×2 (07:00→12:11)
[2019-02-19] MEDS: GABAPENTIN 300 MG CAPSULE PO SCH (08:37)
[2019-02-19] MEDS: OMEPRAZOLE 20 MG CAPSULE.DR PO SCH (08:37)
[2019-02-19] MEDS: OXYBUTYNIN CHLORIDE 5 MG TABLET PO SCH (08:37)
[2019-02-19] MEDS: LISINOPRIL 5 MG TABLET PO SCH (08:38)
[2019-02-19] MEDS: CARVEDILOL 12.5 MG TABLET PO SCH (08:39)
[2019-02-19] MEDS: LEVOTHYROXINE 150 MCG TABLET PO SCH (08:40)
[2019-02-19] MEDS ORDERED: CLOPIDOGREL 75 MG TABLET PO SCH (09:00)
[2019-02-19 12:42] VITALS: BP 94/58
[2019-02-19] MEDS ORDERED: CLOP75TA PO (13:06)
[2019-02-19] MEDS ORDERED: ERTA1VIA4 IV (13:06)
[2019-02-19] MEDS: ERTAPENEM 1 GM in SODIUM CHLORIDE 0.9% 50 ML IV SCH (13:47)
== END 2019-02-19 16:58 | disposition left against medical advice (07) | DRG 280 ==
LOC: ED 20:37 → EDIP 20:40 → 5SO 21:53
PROVIDERS: ADMIT Family Medicine; ATTEND Internal Medicine
PROC: 4A023N7 Measurement of Cardiac Sampling and Pressure, Left Heart, Percutaneous Approach (ICD-10-PCS; principal; 2019-02-16)
PROC: B211YZZ Fluoroscopy of Multiple Coronary Arteries using Other Contrast (ICD-10-PCS; 2019-02-16)
PROC: 02HV33Z Insertion of Infusion Device into Superior Vena Cava, Percutaneous Approach (ICD-10-PCS; 2019-02-18)
PROC: B5181ZA Fluoroscopy of Superior Vena Cava using Low Osmolar Contrast, Guidance (ICD-10-PCS; 2019-02-18)
PROC: B548ZZA Ultrasonography of Superior Vena Cava, Guidance (ICD-10-PCS; 2019-02-18)
DX: T82.855A Stenosis of coronary artery stent, initial encounter (principal); I21.4 Non-ST elevation (NSTEMI) myocardial infarction; N17.0 Acute kidney failure with tubular necrosis; I42.9 Cardiomyopathy, unspecified; I50.42 Chronic combined systolic (congestive) and diastolic (congestive) heart failure; N39.0 Urinary tract infection, site not specified; E87.1 Hypo-osmolality and hyponatremia; Z16.12 Extended spectrum beta lactamase (ESBL) resistance; S00.93XA Contusion of unspecified part of head, initial encounter; J44.9 Chronic obstructive pulmonary disease, unspecified; E11.51 Type 2 diabetes mellitus with diabetic peripheral angiopathy without gangrene; I35.2 Nonrheumatic aortic (valve) stenosis with insufficiency; I35.1 Nonrheumatic aortic (valve) insufficiency; D69.6 Thrombocytopenia, unspecified; E03.9 Hypothyroidism, unspecified; E78.5 Hyperlipidemia, unspecified; F17.210 Nicotine dependence, cigarettes, uncomplicated; G89.11 Acute pain due to trauma; G89.29 Other chronic pain; K21.9 Gastro-esophageal reflux disease without esophagitis; M10.9 Gout, unspecified; W18.31XA Fall on same level due to stepping on an object, initial encounter; I11.0 Hypertensive heart disease with heart failure; I25.10 Atherosclerotic heart disease of native coronary artery without angina pectoris; Z66 Do not resuscitate; Z82.49 Family history of ischemic heart disease and other diseases of the circulatory system; Z83.3 Family history of diabetes mellitus; I25.2 Old myocardial infarction; Z87.440 Personal history of urinary (tract) infections; Z91.14 Patient's other noncompliance with medication regimen; Z95.5 Presence of coronary angioplasty implant and graft; Y93.89 Activity, other specified; Y92.098 Other place in other non-institutional residence as the place of occurrence of the external cause; Y99.8 Other external cause status; Z89.432 Acquired absence of left foot; Z89.431 Acquired absence of right foot; Z80.9 Family history of malignant neoplasm, unspecified; Z79.84 Long term (current) use of oral hypoglycemic drugs
CPT/HCPCS: 36415; 36573; 70450; 71045; 72125; 80048; 80053; 80061; 81001; 82040; 82962; 83036; 83880; 84439; 84443; 84484; 85014; 85018; 85025; 85520; 87040; 87077; 87086; 87184; 87186; 93005; 93308; 93454; 99156; 99285; C1760; C1769; G0378; J0583; J0696; J1335; J1644; J2250; J3010; C1751; J0360; J1815; J7030; Q9967

== ENCOUNTER → 2019-03-18 | Outpatient (CLI) | payer MEDICARE, MEDICAID ==
[~2019-03-18] MED LIST changes: +CLOP75TA PO; +ERTA1VIA4 IV; +NORT50CA52 PO
== END | disposition home or self-care (01) ==
LOC: CVU 10:15
PROVIDERS: ATTEND Internal Medicine Cardiovascular Disease
DX: I65.23 Occlusion and stenosis of bilateral carotid arteries (principal); I35.8 Other nonrheumatic aortic valve disorders; I25.10 Atherosclerotic heart disease of native coronary artery without angina pectoris; I71.9 Aortic aneurysm of unspecified site, without rupture; I70.0 Atherosclerosis of aorta; I71.2 Thoracic aortic aneurysm, without rupture; M51.34 Other intervertebral disc degeneration, thoracic region
CPT/HCPCS: 71250; 74176; 93880; 94060; 94726; 94729

== ENCOUNTER 2019-04-19 21:20 | Observation (INO) | payer MEDICARE, MEDICAID ==
[~2019-04-19] VITALS: Ht 162.6 cm; Wt 61.9 kg
[~2019-04-19 21:20] MED LIST changes: +METF500T PO
[2019-04-19 22:15] LABS: ALBUMIN 3.6 g/dL (3.4-5.0); ANION GAP 8 mmol/L (5-15); CALCIUM 8.8 mg/dL (8.5-10.1); CHLORIDE 102 mmol/L (98-107)
[2019-04-19 22:18] LABS: ALANINE AMINOTRANSFERASE 23 U/L (12-78); ALKALINE PHOSPHATASE 72 U/L (45-117); BILIRUBIN,TOTAL 0.5 mg/dL (0.2-1.0); CREATININE 1.32 mg/dL (0.55-1.02); TOTAL PROTEIN 7.3 g/dL (6.4-8.2)
--- NOTE | 2019-04-19 22:25 | NUR ---
PT STATED "SHE SMOKED SOME NEW WEED CALLED [employer]EL AND THAT IS WHY SHE IS SO LETHARGIC, IT WAS TOO STRONG AND I NEED TO GIVE IT AWAY"
[2019-04-19 22:30] LABS: BASOPHILS # (AUTO) 0.02 x10^3/uL (0-0.1); BASOPHILS % (AUTO) 0 % (0-1); EOSINOPHILS # (AUTO) 0.43 x10^3/uL (0-0.4); EOSINOPHILS % (AUTO) 5 % (1-7); LYMPHOCYTES # (AUTO) 0.85 x10^3/uL (1-3.4); LYMPHOCYTES % (AUTO) 11 % (22-44); MD SCAN; MEAN CORPUSCULAR HEMOGLOBIN 34.4 pg (27.0-34.8); MEAN CORPUSCULAR HGB CONC 33.5 g/dL (32.4-35.8); MEAN CORPUSCULAR VOLUME 102.5 fL (80-100); MEAN PLATELET VOLUME 10.4 fL (7.4-10.4); MONOCYTES # (AUTO) 0.16 x10^3/uL (0.2-0.8); MONOCYTES % (AUTO) 2 % (2-9); NEUTROPHILS # (AUTO) 6.55 x10^3/uL (1.8-6.8); NEUTROPHILS % (AUTO) 82 % (42-75); PLATELET COUNT 68 x10^3/uL (130-400); RED BLOOD COUNT 4.04 x10^6/uL (3.82-5.3); RED CELL DISTRIBUTION WIDTH 16.2 % (9.6-15.2)
--- NOTE | 2019-04-19 22:37 | NUR ---
TAYA MCCAIN AUGUSTA [phone].
[2019-04-19 22:47] LABS: TROPONIN I 0.776 ng/mL (0.000-0.045)
--- NOTE | 2019-04-19 22:49 | NUR ---
REPORT GIVEN TO NICOLA PHILLIPS RN
--- NOTE | 2019-04-19 22:58 | NUR ---
REPORT FROM ALYSSA GUTIÉRREZ.
--- NOTE | 2019-04-19 23:30 | NUR ---
ASSISTED PT TO RESTROOM.
--- NOTE | 2019-04-19 23:48 | NUR ---
REPORT TO LAUREN GUTIÉRREZ.
[2019-04-20 00:03] LABS: FREE T4 (FREE THYROXINE) 0.38 ng/dL (0.76-1.46)
[2019-04-20 00:05] VITALS: BP_SYST 108; BP_SYST 86; BP_DIAS 54; BP_DIAS 70
[2019-04-20 00:15] VITALS: BP 108/70
[2019-04-20] MEDS ORDERED: NICOTINE 7 MG/24 HR PATCH.TD24 TD SCH (01:00)
[2019-04-20] MEDS ORDERED: LIDODERM 5% PATCH TD PRN (01:00)
[2019-04-20] MEDS ORDERED: ACETAMINOPHEN 325 MG TABLET PO PRN (01:00)
[2019-04-20] MEDS ORDERED: hydrALAzine 20 MG/ML, 1ML IVPush PRN (01:00)
[2019-04-20 01:20] VITALS: BP 108/70
[2019-04-20 04:30] LABS: TROPONIN I 0.661 ng/mL (0.000-0.045)
[2019-04-20] MEDS ORDERED: LEVOTHYROXINE 150 MCG TABLET PO SCH (06:00)
[2019-04-20 07:31] VITALS: BP 119/70
[2019-04-20] MEDS ORDERED: CLOPIDOGREL 75 MG TABLET PO SCH (09:00)
[2019-04-20] MEDS ORDERED: SENNA/DOCUSATE TABLET PO SCH (09:00)
[2019-04-20 10:51] LABS: TROPONIN I 0.489 ng/mL (0.000-0.045)
[2019-04-20] MEDS ORDERED: THYR30TA PO (11:10)
[2019-04-21] MEDS ORDERED: THYROID 30 MG TABLET PO SCH (06:00)
== END 2019-04-20 13:20 | disposition home or self-care (01) ==
LOC: ED 22:08 → EDIP 23:10 → INTOOBSV 23:10 → 5SO 23:59
PROVIDERS: ADMIT Family Medicine; ATTEND Family Medicine
DX: R53.83 Other fatigue (principal); N17.9 Acute kidney failure, unspecified; N18.2 Chronic kidney disease, stage 2 (mild); J44.9 Chronic obstructive pulmonary disease, unspecified; K59.00 Constipation, unspecified; I42.9 Cardiomyopathy, unspecified; I45.2 Bifascicular block; K62.5 Hemorrhage of anus and rectum; I13.0 Hypertensive heart and chronic kidney disease with heart failure and stage 1 through stage 4 chronic kidney disease, or unspecified chronic kidney disease; F17.213 Nicotine dependence, cigarettes, with withdrawal; F12.929 Cannabis use, unspecified with intoxication, unspecified; E03.4 Atrophy of thyroid (acquired); E11.22 Type 2 diabetes mellitus with diabetic chronic kidney disease; E11.51 Type 2 diabetes mellitus with diabetic peripheral angiopathy without gangrene; E11.65 Type 2 diabetes mellitus with hyperglycemia; E78.5 Hyperlipidemia, unspecified; G89.29 Other chronic pain; M19.90 Unspecified osteoarthritis, unspecified site; M54.9 Dorsalgia, unspecified; I25.10 Atherosclerotic heart disease of native coronary artery without angina pectoris; I25.2 Old myocardial infarction; I50.9 Heart failure, unspecified; Z79.82 Long term (current) use of aspirin; Z79.4 Long term (current) use of insulin; Z79.899 Other long term (current) drug therapy; Z79.02 Long term (current) use of antithrombotics/antiplatelets; Z95.5 Presence of coronary angioplasty implant and graft; Z95.2 Presence of prosthetic heart valve
CPT/HCPCS: 36415; 71045; 80053; 83735; 84439; 84443; 84481; 84484; 85025; 93005; 97161; 97165; 99285; G0378

== ENCOUNTER 2019-05-26 15:35 | Observation (INO) | payer MEDICARE, MEDICAID ==
[~2019-05-26] VITALS: Ht 160 cm; Wt 59.2 kg
[~2019-05-26 15:35] MED LIST changes: +THYR30TA PO
--- NOTE | 2019-05-26 15:40 | NUR ---
Call esvin Chacon at [phone] for pickler helper.
[2019-05-26 15:54] LABS: BASOPHILS # (AUTO) 0.07 x10^3/uL (0-0.1); BASOPHILS % (AUTO) 1 % (0-1); EOSINOPHILS # (AUTO) 0.28 x10^3/uL (0-0.4); EOSINOPHILS % (AUTO) 4 % (1-7); LYMPHOCYTES # (AUTO) 1.27 x10^3/uL (1-3.4); LYMPHOCYTES % (AUTO) 17 % (22-44); MD NO; MEAN CORPUSCULAR HEMOGLOBIN 34.3 pg (27.0-34.8); MEAN CORPUSCULAR HGB CONC 33.2 g/dL (32.4-35.8); MEAN CORPUSCULAR VOLUME 103.3 fL (80-100); MEAN PLATELET VOLUME 9.3 fL (7.4-10.4); MONOCYTES # (AUTO) 0.32 x10^3/uL (0.2-0.8); MONOCYTES % (AUTO) 4 % (2-9); NEUTROPHILS # (AUTO) 5.54 x10^3/uL (1.8-6.8); NEUTROPHILS % (AUTO) 74 % (42-75); PLATELET COUNT 126 x10^3/uL (130-400); RED BLOOD COUNT 4.26 x10^6/uL (3.82-5.3); RED CELL DISTRIBUTION WIDTH 14.6 % (9.6-15.2)
[2019-05-26] MEDS ORDERED: FAMOTIDINE 20 MG/2 ML IV ONE (16:00)
[2019-05-26] MEDS ORDERED: SODIUM CHLORIDE 0.9% 1,000ML IVBOLUS ONE (16:00)
[2019-05-26] MEDS ORDERED: SODIUM CHLORIDE FLUSH 10ML SYR IVF ONE (16:00)
--- NOTE | 2019-05-26 16:00 | NUR ---
BIB [facility] FOR LOW BP, WEAKNESS, BLACK DIARRHEA. CALLED BY PAULETTE GUTIÉRREZ, PT BEING SEEN POST AORTIC VALVE REPLACEMENT, BP LOW TODAY 82/45 AND BLOOD SUGARS "OFF", BS 180 PER [facility]. HX GIB, DM AND HYPOTHYROID. IV ESTABLISHED AND 1L NS STARTED. REPORT TO RONAK GUTIÉRREZ TO TAKE PRIMARY CARE OF PT AT THIS TIME.
[2019-05-26 16:06] LABS: ANION GAP 6 mmol/L (5-15); CALCIUM 9.7 mg/dL (8.5-10.1); CHLORIDE 105 mmol/L (98-107); CREATININE 1.65 mg/dL (0.55-1.02)
[2019-05-26 16:07] LABS: ALANINE AMINOTRANSFERASE 29 U/L (12-78); ALBUMIN 3.9 g/dL (3.4-5.0)
[2019-05-26 16:09] LABS: ALKALINE PHOSPHATASE 66 U/L (45-117); BILIRUBIN,TOTAL 0.7 mg/dL (0.2-1.0); TOTAL PROTEIN 7.6 g/dL (6.4-8.2)
[2019-05-26] MEDS ORDERED: FAMOTIDINE 20 MG/2 ML ONE (16:32)
[2019-05-26 16:35] LABS: INTERNATIONAL NORMALIZED RATIO 1.16 (0.93-1.1); PROTHROMBIN TIME 12.3 Seconds (9.6-11.5)
[2019-05-26] MEDS ORDERED: PANTOPRAZOLE 80 MG in SODIUM CHLORIDE 0.9% 50 ML IV ONE (17:00)
[2019-05-26] MEDS ORDERED: ACETAMINOPHEN 325 MG TABLET PO PRN (17:30)
[2019-05-26] MEDS ORDERED: ONDANSETRON 2MG/ML, 2ML IVPush PRN (17:30)
[2019-05-26] MEDS ORDERED: FERROUS SULFATE 325 MG TABLET PO SCH (17:30)
[2019-05-26] MEDS ORDERED: ONDANSETRON ODT 4 MG PO PRN (17:30)
--- NOTE | 2019-05-26 17:42 | NUR ---
VSS AND UPDATED IN EMR. REPORT OF PT TO MARLA ORELLANA. AWAITING PROTONIX IV DOSE FROM PHARMACY AT THIS TIME. CALLED AND SPOKE TO JONA IN PHARMACY ABOUT DELAY AND HE WILL TUBE NOW.
[2019-05-26] MEDS: SODIUM CHLORIDE 0.9% 1,000 ML IV SCH (18:13)
[2019-05-26] MEDS: PANTOPRAZOLE 80 MG in SODIUM CHLORIDE 0.9% 100 ML IV SCH (18:18)
--- NOTE | 2019-05-26 18:20 | NUR ---
PT MEDICATED PER APR. FLOOR RN NOTIFIED OF DELAY AND CHANGES TO CARE. ESTEE ROMERO AT FOR TRANPORT OF PT TO FLOOR.
[2019-05-26 19:31] VITALS: BP 103/64
[2019-05-26] MEDS: SUCRALFATE 1 GM/10 ML UDC PO SCH (22:40)
[2019-05-26] MEDS: ATORVASTATIN 80 MG TABLET PO SCH (22:41)
[2019-05-26] MEDS: GABAPENTIN 300 MG CAPSULE PO SCH (22:41)
[2019-05-26] MEDS: NICOTINE 7 MG/24 HR PATCH.TD24 TD SCH (22:41)
[2019-05-26] MEDS: LACTOBACILLUS CHEW TABLET PO SCH (22:41)
[2019-05-26] MEDS: CARVEDILOL 12.5 MG TABLET PO SCH (22:41)
[2019-05-26] MEDS: OMEPRAZOLE 20 MG CAPSULE.DR PO SCH (22:41)
[2019-05-26 23:13] VITALS: BP 103/64
[2019-05-27 00:36] VITALS: BP 103/65
[2019-05-27] MEDS: CEFTRIAXONE PMX 1GM/50ML 50 ML IV SCH ×2 (00:41→18:03)
[2019-05-27 03:50] LABS: ANION GAP 6 mmol/L (5-15); CALCIUM 8.5 mg/dL (8.5-10.1); CHLORIDE 111 mmol/L (98-107)
[2019-05-27 03:51] LABS: CREATININE 1.24 mg/dL (0.55-1.02)
[2019-05-27 03:59] LABS: MEAN CORPUSCULAR HEMOGLOBIN 34.1 pg (27.0-34.8); MEAN CORPUSCULAR HGB CONC 33.2 g/dL (32.4-35.8); MEAN CORPUSCULAR VOLUME 102.7 fL (80-100); MEAN PLATELET VOLUME 9.6 fL (7.4-10.4); PLATELET COUNT 97 x10^3/uL (130-400); RED BLOOD COUNT 3.67 x10^6/uL (3.82-5.3); RED CELL DISTRIBUTION WIDTH 14.8 % (9.6-15.2)
[2019-05-27 04:19] LABS: BASOPHILS # (AUTO) 0.03 x10^3/uL (0-0.1); BASOPHILS % (AUTO) 1 % (0-1); EOSINOPHILS # (AUTO) 0.26 x10^3/uL (0-0.4); EOSINOPHILS % (AUTO) 4 % (1-7); LYMPHOCYTES # (AUTO) 0.91 x10^3/uL (1-3.4); LYMPHOCYTES % (AUTO) 15 % (22-44); MD SCAN; MONOCYTES # (AUTO) 0.31 x10^3/uL (0.2-0.8); MONOCYTES % (AUTO) 5 % (2-9); NEUTROPHILS # (AUTO) 4.48 x10^3/uL (1.8-6.8); NEUTROPHILS % (AUTO) 75 % (42-75)
[2019-05-27] MEDS: PANTOPRAZOLE 80 MG in SODIUM CHLORIDE 0.9% 100 ML IV SCH ×2 (04:46→15:23)
[2019-05-27] MEDS ORDERED: ASPIRIN 81 MG TABLET EC PO SCH (06:00)
[2019-05-27] MEDS ORDERED: THYROID 30 MG TABLET PO SCH (06:00)
[2019-05-27 07:00] VITALS: BP 102/64
[2019-05-27] MEDS ORDERED: CLOPIDOGREL 75 MG TABLET PO SCH (09:00)
[2019-05-27] MEDS: CARVEDILOL 12.5 MG TABLET PO SCH ×2 (09:00→21:00)
[2019-05-27] MEDS: POTASSIUM CHLORIDE 10 MEQ TABLET.ER PO SCH (09:00)
[2019-05-27] MEDS: LACTOBACILLUS CHEW TABLET PO SCH ×3 (09:00→21:29)
[2019-05-27] MEDS ORDERED: LEVOTHYROXINE 150 MCG TABLET PO SCH (09:00)
[2019-05-27] MEDS: GABAPENTIN 300 MG CAPSULE PO SCH ×2 (09:01→21:29)
[2019-05-27] MEDS: LISINOPRIL 5 MG TABLET PO SCH (09:01)
[2019-05-27] MEDS: SUCRALFATE 1 GM/10 ML UDC PO SCH ×4 (09:01→21:29)
[2019-05-27] MEDS: OMEPRAZOLE 20 MG CAPSULE.DR PO SCH ×2 (09:01→21:29)
[2019-05-27 12:54] VITALS: BP 107/60
[2019-05-27] MEDS: NICOTINE 7 MG/24 HR PATCH.TD24 TD SCH (18:02)
[2019-05-27 18:33] VITALS: BP 114/65
[2019-05-27 21:27] VITALS: BP 115/67
[2019-05-27] MEDS: ATORVASTATIN 80 MG TABLET PO SCH (21:29)
[2019-05-28] MEDS: SODIUM CHLORIDE 0.9% 1,000 ML IV SCH (00:27)
[2019-05-28 03:00] VITALS: BP 110/68
[2019-05-28] MEDS: PANTOPRAZOLE 80 MG in SODIUM CHLORIDE 0.9% 100 ML IV SCH (05:08)
[2019-05-28] MEDS ORDERED: LEVOTHYROXINE 150 MCG TABLET PO SCH ×2 (06:00)
[2019-05-28] MEDS: SUCRALFATE 1 GM/10 ML UDC PO SCH ×2 (06:07→10:04)
[2019-05-28 07:05] VITALS: BP 129/73
[2019-05-28] MEDS ORDERED: LABETALOL 5MG/ML, 20ML IV PRN (08:00)
[2019-05-28] MEDS ORDERED: FENTANYL PF 100 MCG/2ML IV PRN (08:00)
[2019-05-28] MEDS ORDERED: ALBUTEROL/IPRATROPIUM 2.5MG/0.5MG, 3 ML NPPB PRN (08:00)
[2019-05-28] MEDS ORDERED: ALBUTEROL SULFATE 2.5 MG/3 ML NPPB PRN (08:00)
[2019-05-28] MEDS ORDERED: hydrALAzine 20 MG/ML, 1ML IV PRN (08:00)
[2019-05-28] MEDS ORDERED: CHLORHEXIDINE 15 ML UDC ONE (08:11)
[2019-05-28] MEDS ORDERED: SUCCINYLCHOLINE 20 MG/ML, 10ML ONE (08:16)
[2019-05-28] MEDS ORDERED: SUGAMMADEX 200 MG/2 ML IVPush ONE (08:16)
[2019-05-28] MEDS ORDERED: PROPOFOL 10 MG/ML, 20ML ONE (08:16)
[2019-05-28] MEDS ORDERED: ROCURONIUM 10 MG/ML,10ML ONE (08:16)
[2019-05-28] MEDS ORDERED: ASPIRIN 81 MG TABLET CHEW PO SCH (09:00)
[2019-05-28 09:55] VITALS: BP 133/80
[2019-05-28] MEDS: LISINOPRIL 5 MG TABLET PO SCH (10:03)
[2019-05-28] MEDS: OMEPRAZOLE 20 MG CAPSULE.DR PO SCH (10:03)
[2019-05-28] MEDS: POTASSIUM CHLORIDE 10 MEQ TABLET.ER PO SCH (10:03)
[2019-05-28] MEDS: GABAPENTIN 300 MG CAPSULE PO SCH (10:04)
[2019-05-28] MEDS: CARVEDILOL 12.5 MG TABLET PO SCH (10:04)
[2019-05-28] MEDS: LACTOBACILLUS CHEW TABLET PO SCH (10:04)
[2019-05-28] MEDS ORDERED: OMEP-110 PO (11:50)
[2019-05-28 12:13] VITALS: BP 111/74
== END 2019-05-28 15:04 | disposition home health service (06) ==
LOC: ED 16:41 → INTOOBSV 16:42 → EDIP 16:42 → ED 16:47 → 4EST 18:25
PROVIDERS: ADMIT Internal Medicine; ATTEND Family Medicine
DX: K25.4 Chronic or unspecified gastric ulcer with hemorrhage (principal); N17.0 Acute kidney failure with tubular necrosis; I42.9 Cardiomyopathy, unspecified; I50.32 Chronic diastolic (congestive) heart failure; D69.6 Thrombocytopenia, unspecified; E03.9 Hypothyroidism, unspecified; F17.210 Nicotine dependence, cigarettes, uncomplicated; F25.9 Schizoaffective disorder, unspecified; F31.9 Bipolar disorder, unspecified; I11.0 Hypertensive heart disease with heart failure; I25.10 Atherosclerotic heart disease of native coronary artery without angina pectoris; J44.9 Chronic obstructive pulmonary disease, unspecified; E78.5 Hyperlipidemia, unspecified; I25.2 Old myocardial infarction; I35.0 Nonrheumatic aortic (valve) stenosis; F12.10 Cannabis abuse, uncomplicated; Z95.5 Presence of coronary angioplasty implant and graft; Z95.2 Presence of prosthetic heart valve; E11.9 Type 2 diabetes mellitus without complications; Z79.82 Long term (current) use of aspirin
CPT/HCPCS: 36415; 43239; 80048; 80053; 82962; 83690; 85018; 85025; 85610; 88305; 96365; 96366; 96367; 96368; 96375; 96376; 99285; C9113; G0378; J0330; J0696; J2704; J3490; J7030; 96374

== ENCOUNTER 2019-11-20 12:21 | Emergency (ER) | payer MEDICARE, MEDICAID ==
[~2019-11-20] VITALS: Ht 160 cm; Wt 57.2 kg
[~2019-11-20 12:21] MED LIST changes: +HYDR-3246 PO; -HYDR-36 PO; -OXYC-432 PO; +OXYC1TAB18 PO; -WARF5TAB PO; +WARF5TAB2 PO
--- NOTE | 2019-11-20 12:48 | NUR ---
PIV PLACED. 2 SETS BLOOD CX AND LABS COLLECTED BY DIRECTOR OF TECHNOLOGY.
[2019-11-20 12:49] LABS: BASOPHILS % (AUTO) 1 % (0-1); EOSINOPHILS % (AUTO) 0 % (1-7); LYMPHOCYTES % (AUTO) 4 % (22-44); MEAN CORPUSCULAR HEMOGLOBIN 32.5 pg (27.0-34.8); MEAN CORPUSCULAR HGB CONC 32.8 g/dL (32.4-35.8); MEAN PLATELET VOLUME 9.8 fL (7.4-10.4); MONOCYTES % (AUTO) 10 % (2-9); NEUTROPHILS % (AUTO) 86 % (42-75); PLATELET COUNT 113 x10^3/uL (130-400); RED BLOOD COUNT 3.67 x10^6/uL (3.82-5.3); RED CELL DISTRIBUTION WIDTH 15.6 % (9.6-15.2)
[2019-11-20] MEDS ORDERED: ONDANSETRON 2MG/ML, 2ML ONE (12:53)
[2019-11-20 13:00] LABS: ALANINE AMINOTRANSFERASE 23 U/L (12-78); ALBUMIN 3.4 g/dL (3.4-5.0); ANION GAP 8 mmol/L (5-15); CALCIUM 9.1 mg/dL (8.5-10.1); CHLORIDE 102 mmol/L (98-107); CREATININE 1.31 mg/dL (0.55-1.02)
[2019-11-20] MEDS ORDERED: SODIUM CHLORIDE FLUSH 10ML SYR IVF ONE (13:00)
[2019-11-20] MEDS ORDERED: ONDANSETRON 2MG/ML, 2ML IVPush ONE (13:00)
[2019-11-20] MEDS ORDERED: SODIUM CHLORIDE 0.9% 1,000 ML IV ONE (13:00)
[2019-11-20 13:02] LABS: ALKALINE PHOSPHATASE 76 U/L (45-117); BILIRUBIN,TOTAL 0.6 mg/dL (0.2-1.0); TOTAL PROTEIN 7.2 g/dL (6.4-8.2)
--- NOTE | 2019-11-20 13:05 | NUR ---
PT AMBULATED TO RESTROOM WITH STEADY GAIT TO PROVIDE URINE SAMPLE. UA COLLECTED AND SENT TO LAB. STRANNER PER RUNNING. PT RESTING ON [place] WATCHING TV. STEFAN.
[2019-11-20 13:20] LABS: MD SCAN
[2019-11-20 13:31] LABS: MICROSCOPIC INDICATED
--- NOTE | 2019-11-20 14:04 | NUR ---
ALL RESULTS ARE BACK AT THIS TIME. CHART UP FOR RECHECK.
[2019-11-20 14:18] VITALS: BP 119/62
[2019-11-20] MEDS ORDERED: CEFTRIAXONE PMX 1GM/50ML 50 ML ONE (14:37)
--- NOTE | 2019-11-20 14:40 | NUR ---
IV ABX STARTED PER APR. BLOOD CX COLLECTED PRIOR TO ADMIN. PT RESTING COMFORTABLY ON [facility].
[2019-11-20] MEDS ORDERED: CEFTRIAXONE PMX 1GM/50ML 50 ML IVPB ONE (15:00)
== END 2019-11-20 15:39 | disposition home or self-care (01) ==
LOC: ED 13:37
DX: N30.00 Acute cystitis without hematuria (principal); E78.5 Hyperlipidemia, unspecified; I25.2 Old myocardial infarction; J44.9 Chronic obstructive pulmonary disease, unspecified; R51.9 Headache, unspecified; R53.1 Weakness; R94.31 Abnormal electrocardiogram [ECG] [EKG]; I25.10 Atherosclerotic heart disease of native coronary artery without angina pectoris; I11.9 Hypertensive heart disease without heart failure; I10 Essential (primary) hypertension; E11.40 Type 2 diabetes mellitus with diabetic neuropathy, unspecified; F17.210 Nicotine dependence, cigarettes, uncomplicated; Z90.49 Acquired absence of other specified parts of digestive tract
CPT/HCPCS: 36415; 80053; 81001; 83605; 85025; 87040; 87086; 93005; 96361; 96374; 96375; 99284; J0696; J2405; J7030